=== PATIENT | male | born 1945 | race Two or more races ===

== ENCOUNTER 2020-03-08 14:56 | Emergency (ER) | payer BC, OTHER ==
[~2020-03-08] VITALS: Ht 165.1 cm; Wt 72.6 kg
[2020-03-08] MEDS ORDERED: ASPirin 81 mg TAB PO ONE (15:15)
[2020-03-08 22:13] LABS: Basophils # (auto) 0 10 ^3/uL (0-0.2); Basophils % (auto) 0.9 % (0.0-2.0); Eosinophils # (auto) 0.1 10 ^3/uL (0-0.8); Eosinophils % (auto) 1.3 % (0.0-7.0); Hematocrit 32.6 % (41.0-53.0); Hemoglobin 11.3 g/dL (13.5-17.5); Lymphocytes # (auto) 0.8 10 ^3/uL (0.4-5.4); Lymphocytes % (auto) 16.1 % (10.0-50.0); Mean Corpuscular Hemoglobin 30.9 pg (28.0-32.0); Mean Corpuscular Hgb Conc. 34.5 g/dL (32.0-36.0); Mean Corpuscular Volume 89.6 fL (80.0-100.0); Monocytes # (auto) 0.5 10 ^3/uL (0-1.3); Monocytes % (auto) 11.2 % (0.0-12.0); Neutrophils # (auto) 3.4 10 ^3/uL (1.6-8.6); Neutrophils % (auto) 70.5 % (37.0-80.0); Platelet Count (auto) 175 10^3/uL (140-450); Red Blood Cells 3.64 10^6/uL (4.5-5.90); Red Cell Distribution Width 13.4 % (11.8-14.3); White Blood Cell 4.9 10^3/uL (4.4-10.8)
[2020-03-08 22:33] LABS: Albumin 3.7 g/dL (3.4-5.0); Potassium 4.2 mmol/L (3.5-5.1)
[2020-03-08 22:35] LABS: INR 1.02 (0.9-1.15); Partial Thromboplastin Time 27.1 sec (23.0-31.2)
[2020-03-08 22:36] LABS: Calcium 8.4 mg/dL (8.5-10.1); Magnesium 2.1 mg/dL (1.6-2.6)
[2020-03-08 22:41] LABS: Bilirubin, Total 0.4 mg/dL (0.2-1.0); Total Protein 7.7 g/dL (6.4-8.2)
[2020-03-09 03:00] VITALS: BP 161/67
== END 2020-03-08 23:17 | disposition home or self-care (01) ==
LOC: ER 14:56 → EDBD 14:56 → ER 23:17
DX: F41.9 Anxiety disorder, unspecified (principal); R07.89 Other chest pain; I10 Essential (primary) hypertension
CPT/HCPCS: 36415; 71045; 80053; 83735; 83880; 84484; 85025; 85610; 85730; 93005

== ENCOUNTER 2020-04-25 04:24 | Inpatient (IN) | payer BC ==
[~2020-04-25] VITALS: Ht 175.3 cm; Wt 73.3 kg
[2020-04-25 08:31] LABS: Basophils # (auto) 0 10 ^3/uL (0-0.2); Basophils % (auto) 0.2 % (0.0-2.0); Eosinophils # (auto) 0 10 ^3/uL (0-0.8); Eosinophils % (auto) 0.1 % (0.0-7.0); Hematocrit 32.7 % (41.0-53.0); Hemoglobin 11.4 g/dL (13.5-17.5); Lymphocytes # (auto) 0.4 10 ^3/uL (0.4-5.4); Lymphocytes % (auto) 4.6 % (10.0-50.0); Mean Corpuscular Hemoglobin 31.1 pg (28.0-32.0); Mean Corpuscular Hgb Conc. 34.9 g/dL (32.0-36.0); Mean Corpuscular Volume 89.1 fL (80.0-100.0); Monocytes # (auto) 0.5 10 ^3/uL (0-1.3); Monocytes % (auto) 5.7 % (0.0-12.0); Neutrophils # (auto) 7.6 10 ^3/uL (1.6-8.6); Neutrophils % (auto) 89.4 % (37.0-80.0); Platelet Count (auto) 139 10^3/uL (140-450); Red Blood Cells 3.67 10^6/uL (4.5-5.90); Red Cell Distribution Width 13.5 % (11.8-14.3); White Blood Cell 8.5 10^3/uL (4.4-10.8)
[2020-04-25 09:11] LABS: INR 1.03 (0.9-1.15); Partial Thromboplastin Time 25.1 sec (23.0-31.2)
[2020-04-25] MEDS ORDERED: ONDANSETRON HCL 4 MG/2 ML VIAL IV ONE (10:00)
[2020-04-25] MEDS ORDERED: MORPHINE SULFATE 4 MG/ML SYR/VIAL IV ONE (10:00)
[2020-04-25 12:57] LABS: Basophils # (auto) 0 10 ^3/uL (0-0.2); Basophils % (auto) 0.1 % (0.0-2.0); Eosinophils # (auto) 0 10 ^3/uL (0-0.8); Eosinophils % (auto) 0.1 % (0.0-7.0); Hematocrit 33.2 % (41.0-53.0); Hemoglobin 11.5 g/dL (13.5-17.5); Lymphocytes # (auto) 0.4 10 ^3/uL (0.4-5.4); Lymphocytes % (auto) 4.9 % (10.0-50.0); Mean Corpuscular Hemoglobin 30.9 pg (28.0-32.0); Mean Corpuscular Hgb Conc. 34.5 g/dL (32.0-36.0); Mean Corpuscular Volume 89.4 fL (80.0-100.0); Monocytes # (auto) 0.3 10 ^3/uL (0-1.3); Monocytes % (auto) 3.8 % (0.0-12.0); Neutrophils # (auto) 7.9 10 ^3/uL (1.6-8.6); Neutrophils % (auto) 91.1 % (37.0-80.0); Nucleated Red Blood Cells % 0.2 %; Platelet Count (auto) 148 10^3/uL (140-450); Red Blood Cells 3.72 10^6/uL (4.5-5.90); Red Cell Distribution Width 13.7 % (11.8-14.3); White Blood Cell 8.7 10^3/uL (4.4-10.8)
[2020-04-25 13:02] LABS: Albumin 3.1 g/dL (3.4-5.0); Calcium 8.1 mg/dL (8.5-10.1); Potassium 5.2 mmol/L (3.5-5.1)
[2020-04-25 13:05] LABS: BUN/Creatinine Ratio 15.2; Bilirubin, Total 0.5 mg/dL (0.2-1.0)
[2020-04-25] MEDS ORDERED: NITROGLYCERIN 0.4 MG SL TAB SL PRN (13:45)
[2020-04-25] MEDS ORDERED: SODIUM BICARBONATE 8.4 % INJ 50ML VIAL IV ONE (13:45)
[2020-04-25] MEDS ORDERED: ONDANSETRON HCL 4 MG/2 ML VIAL IV PRN (13:45)
[2020-04-25] MEDS ORDERED: amLODIPine BESYLATE 5 MG TAB PO ONE (13:45)
[2020-04-25] MEDS ORDERED: SODIUM ZIRCONIUM CYCL 10 GM PAK PO ONE (13:45)
[2020-04-25] MEDS ORDERED: ACETAMINOPHEN 500 MG TAB PO PRN (13:45)
[2020-04-25] MEDS ORDERED: DEXTROSE (50%) 50ML SYRG IV PRN (13:45)
[2020-04-25] MEDS ORDERED: MORPHINE SULF INJ 2 MG/ML SYRINGE 1ML IV PRN ×2 (13:45)
[2020-04-25 14:17] LABS: INR 1.03 (0.9-1.15); Partial Thromboplastin Time 25.7 sec (23.0-31.2)
[2020-04-25 14:44] LABS: Urine Bacteria NONE SEEN /hpf (None Seen); Urine Blood Negative /uL (Negative); Urine Specific Gravity 1.013 (1.001-1.035); Urine WBC 1 /hpf (0 - 3)
[2020-04-25] MEDS: HYDROcodone-ACET 5/325MG TAB PO PRN (15:07)
[2020-04-25] MEDS: hydrALAZINE HCL 20 MG/ML VL IV PRN (16:07)
[2020-04-25] MEDS: ACCU-CHEK COMFORT CURVE STRIP VI SCH ×2 (18:17→21:43)
[2020-04-25] MEDS: InsuLIN REG 1unit/0.01ml Soln (100units/ml) SC SCH ×2 (18:17→21:49)
[2020-04-25 23:27] LABS: Creatinine, Urine 94 mg/dL (30.0-125.0); Sodium Urine 33 mmol/L (40-220)
[2020-04-25 23:30] VITALS: BP 162/72
[2020-04-26] MEDS ORDERED: GLIP10TA9 PO (02:26)
[2020-04-26] MEDS ORDERED: NITR1SPR SL (02:26)
[2020-04-26] MEDS ORDERED: HYDR50TA15 PO (02:26)
[2020-04-26] MEDS ORDERED: METO-158 PO (02:26)
[2020-04-26] MEDS ORDERED: ATOR20TA PO (02:26)
[2020-04-26] MEDS ORDERED: CLOP75TA28 PO (02:26)
[2020-04-26] MEDS ORDERED: AMLO-489 PO (02:26)
[2020-04-26] MEDS ORDERED: ASPI-543 PO (02:26)
[2020-04-26] MEDS ORDERED: ISOS60TA24 PO (02:26)
[2020-04-26 05:00] VITALS: BP 159/71
[2020-04-26] MEDS: hydrALAZINE HCL 20 MG/ML VL IV PRN (06:04)
[2020-04-26] MEDS: ACCU-CHEK COMFORT CURVE STRIP VI SCH ×4 (06:34→21:37)
[2020-04-26] MEDS: InsuLIN REG 1unit/0.01ml Soln (100units/ml) SC SCH ×4 (06:34→21:37)
[2020-04-26 07:04] LABS: Basophils # (auto) 0 10 ^3/uL (0-0.2); Basophils % (auto) 0.4 % (0.0-2.0); Eosinophils # (auto) 0 10 ^3/uL (0-0.8); Eosinophils % (auto) 0.6 % (0.0-7.0); Hematocrit 33.1 % (41.0-53.0); Hemoglobin 11.7 g/dL (13.5-17.5); Lymphocytes # (auto) 0.9 10 ^3/uL (0.4-5.4); Lymphocytes % (auto) 12.3 % (10.0-50.0); Mean Corpuscular Hemoglobin 31.3 pg (28.0-32.0); Mean Corpuscular Hgb Conc. 35.3 g/dL (32.0-36.0); Mean Corpuscular Volume 88.6 fL (80.0-100.0); Monocytes # (auto) 0.6 10 ^3/uL (0-1.3); Monocytes % (auto) 8.6 % (0.0-12.0); Neutrophils # (auto) 5.6 10 ^3/uL (1.6-8.6); Neutrophils % (auto) 78.1 % (37.0-80.0); Platelet Count (auto) 146 10^3/uL (140-450); Red Blood Cells 3.74 10^6/uL (4.5-5.90); Red Cell Distribution Width 13.5 % (11.8-14.3); White Blood Cell 7.1 10^3/uL (4.4-10.8)
[2020-04-26 07:16] LABS: Albumin 3.1 g/dL (3.4-5.0); Calcium 8.5 mg/dL (8.5-10.1); Potassium 4.2 mmol/L (3.5-5.1)
[2020-04-26 07:18] LABS: BUN/Creatinine Ratio 14.1
[2020-04-26 07:21] LABS: Bilirubin, Total 0.7 mg/dL (0.2-1.0); Total Protein 6.9 g/dL (6.4-8.2)
[2020-04-26 09:00] VITALS: BP 158/58
[2020-04-26] MEDS ORDERED: SODIUM CHLORIDE 0.9% 1,000 ML IV ONE (10:15)
[2020-04-26] MEDS: amLODIPine BESYLATE 5 MG TAB PO SCH (11:06)
[2020-04-26] MEDS: FAMOTIDINE 20 MG TAB PO SCH (11:06)
[2020-04-26 13:00] VITALS: BP 171/63
[2020-04-26] MEDS: SODIUM CHLORIDE 0.9% 1,000 ML IV SCH (14:15)
[2020-04-26] MEDS: MECLIZINE HCL 25 MG TAB PO SCH (17:16)
[2020-04-26 17:17] VITALS: BP 158/63
[2020-04-26] MEDS: CELECOXIB 100 MG CAP PO SCH (21:36)
[2020-04-26] MEDS: cloNIDine HCL 0.1 MG TAB PO SCH (21:37)
[2020-04-26 22:00] VITALS: BP 139/88
[2020-04-26] MEDS: HYDROcodone-ACET 5/325MG TAB PO PRN (22:09)
[2020-04-27] MEDS: SODIUM CHLORIDE 0.9% 1,000 ML IV SCH (04:28)
[2020-04-27 05:00] VITALS: BP 159/73
[2020-04-27] MEDS: MECLIZINE HCL 25 MG TAB PO SCH ×2 (06:52→17:00)
[2020-04-27] MEDS: InsuLIN REG 1unit/0.01ml Soln (100units/ml) SC SCH ×4 (06:52→21:50)
[2020-04-27] MEDS: ACCU-CHEK COMFORT CURVE STRIP VI SCH ×4 (06:52→21:51)
[2020-04-27] MEDS: HYDROcodone-ACET 5/325MG TAB PO PRN (06:52)
[2020-04-27 06:54] LABS: Basophils # (auto) 0 10 ^3/uL (0-0.2); Basophils % (auto) 0.5 % (0.0-2.0); Eosinophils # (auto) 0.1 10 ^3/uL (0-0.8); Eosinophils % (auto) 1.7 % (0.0-7.0); Hematocrit 28.6 % (41.0-53.0); Hemoglobin 10.1 g/dL (13.5-17.5); Lymphocytes # (auto) 1.1 10 ^3/uL (0.4-5.4); Lymphocytes % (auto) 17.7 % (10.0-50.0); Mean Corpuscular Hemoglobin 31.4 pg (28.0-32.0); Mean Corpuscular Hgb Conc. 35.4 g/dL (32.0-36.0); Mean Corpuscular Volume 88.7 fL (80.0-100.0); Monocytes # (auto) 0.8 10 ^3/uL (0-1.3); Monocytes % (auto) 12.6 % (0.0-12.0); Neutrophils # (auto) 4.3 10 ^3/uL (1.6-8.6); Neutrophils % (auto) 67.5 % (37.0-80.0); Platelet Count (auto) 118 10^3/uL (140-450); Red Blood Cells 3.23 10^6/uL (4.5-5.90); Red Cell Distribution Width 13.4 % (11.8-14.3); White Blood Cell 6.4 10^3/uL (4.4-10.8)
[2020-04-27 07:05] LABS: Calcium 7.6 mg/dL (8.5-10.1); Potassium 4.5 mmol/L (3.5-5.1)
[2020-04-27 09:00] VITALS: BP 160/70
[2020-04-27] MEDS: cloNIDine HCL 0.1 MG TAB PO SCH (09:34)
[2020-04-27] MEDS: amLODIPine BESYLATE 5 MG TAB PO SCH (09:35)
[2020-04-27] MEDS: ASPirin-EC 81 mg tab PO SCH (09:35)
[2020-04-27] MEDS: CELECOXIB 100 MG CAP PO SCH ×2 (09:35→21:51)
[2020-04-27] MEDS: FAMOTIDINE 20 MG TAB PO SCH (09:35)
[2020-04-27] MEDS: CARVEDILOL 3.125 MG TAB PO SCH ×2 (11:30→21:51)
[2020-04-27 13:00] VITALS: BP 152/73
[2020-04-27] MEDS: hydrALAZINE HCL 20 MG/ML VL IV PRN (18:00)
[2020-04-27 23:02] VITALS: BP 149/65
[2020-04-28] MEDS: hydrALAZINE HCL 20 MG/ML VL IV PRN ×3 (00:58→11:43)
[2020-04-28 02:47] VITALS: BP 137/60
[2020-04-28 05:23] VITALS: BP 154/76
[2020-04-28] MEDS: MECLIZINE HCL 25 MG TAB PO SCH ×2 (05:29→16:48)
[2020-04-28] MEDS: InsuLIN REG 1unit/0.01ml Soln (100units/ml) SC SCH ×3 (05:30→16:54)
[2020-04-28] MEDS: ACCU-CHEK COMFORT CURVE STRIP VI SCH ×3 (05:31→16:46)
[2020-04-28] MEDS: HYDROcodone-ACET 5/325MG TAB PO PRN ×2 (05:36→15:17)
[2020-04-28 06:29] LABS: % Iron Saturation 10.8 % (20-55)
[2020-04-28 06:31] LABS: BUN/Creatinine Ratio 15.6; Calcium 8.4 mg/dL (8.5-10.1); Potassium 4.1 mmol/L (3.5-5.1)
[2020-04-28 09:00] VITALS: BP 152/69
[2020-04-28] MEDS: CELECOXIB 100 MG CAP PO SCH (09:15)
[2020-04-28] MEDS: CARVEDILOL 3.125 MG TAB PO SCH (09:17)
[2020-04-28] MEDS: amLODIPine BESYLATE 5 MG TAB PO SCH (09:17)
[2020-04-28] MEDS: ASPirin-EC 81 mg tab PO SCH (09:17)
[2020-04-28] MEDS: FAMOTIDINE 20 MG TAB PO SCH (09:18)
[2020-04-28 13:00] VITALS: BP 143/61
[2020-04-28] MEDS ORDERED: CYCL5TAB PO (14:34)
[2020-04-28] MEDS ORDERED: CEL100T PO (14:34)
[2020-04-28] MEDS ORDERED: FAMO20TA10 PO (14:34)
[2020-04-28 17:40] VITALS: BP 143/67
[2020-04-28] MEDS ORDERED: FUROSEMIDE 20 MG TAB PO SCH (18:00)
== END 2020-04-28 18:43 | disposition home or self-care (01) | DRG 199 ==
LOC: ER 04:24 → EDBD 04:24 → TELE 04:25 → DOU IN ADS 23:20
PROVIDERS: ADMIT Nurse Practitioner Acute Care; ATTEND Hospitalist
PROC: 0W9930Z Drainage of Right Pleural Cavity with Drainage Device, Percutaneous Approach (ICD-10-PCS; principal; 2020-04-25)
DX: S27.0XXA Traumatic pneumothorax, initial encounter (principal); J96.01 Acute respiratory failure with hypoxia; S22.41XA Multiple fractures of ribs, right side, initial encounter for closed fracture; E44.0 Moderate protein-calorie malnutrition; J98.11 Atelectasis; N18.5 Chronic kidney disease, stage 5; N17.9 Acute kidney failure, unspecified; I12.0 Hypertensive chronic kidney disease with stage 5 chronic kidney disease or end stage renal disease; Z20.822 Contact with and (suspected) exposure to COVID-19; E87.5 Hyperkalemia; I25.10 Atherosclerotic heart disease of native coronary artery without angina pectoris; E11.22 Type 2 diabetes mellitus with diabetic chronic kidney disease; F41.9 Anxiety disorder, unspecified; W18.39XA Other fall on same level, initial encounter; Y93.89 Activity, other specified; Y92.89 Other specified places as the place of occurrence of the external cause; Y99.8 Other external cause status; Z79.84 Long term (current) use of oral hypoglycemic drugs; Z79.899 Other long term (current) drug therapy; Z95.5 Presence of coronary angioplasty implant and graft; Z82.49 Family history of ischemic heart disease and other diseases of the circulatory system; Z83.3 Family history of diabetes mellitus
CPT/HCPCS: 36415; 70450; 70551; 71045; 71250; 76775; 78582; 80048; 80053; 81001; 82570; 82728; 82962; 83036; 83540; 83550; 83735; 83880; 83935; 84100; 84132; 84300; 84484; 85025; 85379; 85610; 85730; 87426; 93005; 93970; 96372; 96374; 96375; G0378; J1815; J2405

== ENCOUNTER 2020-07-25 21:28 | Inpatient (IN) | payer OTHER ==
[~2020-07-25] VITALS: Ht 172.7 cm; Wt 70.8 kg
[~2020-07-25 21:28] MED LIST: AMLO-489 PO; ASPI-543 PO; ATOR20TA PO; CEL100T PO; CLOP75TA28 PO; CYCL5TAB PO; FAMO20TA10 PO; GLIP10TA9 PO; HYDR50TA15 PO; ISOS60TA24 PO; METO-158 PO; NITR1SPR SL
[2020-07-25 22:22] LABS: Basophils # (auto) 0.1 10 ^3/uL (0-0.2); Eosinophils # (auto) 0.3 10 ^3/uL (0-0.8); Eosinophils % (auto) 5.5 % (0.0-7.0); Hematocrit 29.6 % (41.0-53.0); Hemoglobin 10.7 g/dL (13.5-17.5); Lymphocytes # (auto) 0.8 10 ^3/uL (0.4-5.4); Lymphocytes % (auto) 16.1 % (10.0-50.0); Mean Corpuscular Hemoglobin 31.8 pg (28.0-32.0); Mean Corpuscular Hgb Conc. 36.1 g/dL (32.0-36.0); Monocytes # (auto) 0.6 10 ^3/uL (0-1.3); Monocytes % (auto) 12.3 % (0.0-12.0); Neutrophils # (auto) 3.4 10 ^3/uL (1.6-8.6); Neutrophils % (auto) 65.1 % (37.0-80.0); Platelet Count (auto) 175 10^3/uL (140-450); Red Blood Cells 3.37 10^6/uL (4.5-5.90); Red Cell Distribution Width 13.7 % (11.8-14.3); White Blood Cell 5.2 10^3/uL (4.4-10.8)
[2020-07-25 22:41] LABS: Albumin 3.6 g/dL (3.4-5.0); Anion Gap 10 (5-15); Blood Urea Nitrogen 63 mg/dL (7-18); Calcium 8.1 mg/dL (8.5-10.1); Carbon Dioxide 20 mmol/L (21-32); Chloride 104 mmol/L (98-107); Glucose 222 mg/dL (74-106); Potassium 3.9 mmol/L (3.5-5.1); Sodium 134 mmol/L (136-145)
[2020-07-25 22:48] LABS: Alanine Aminotransferase 17 U/L (16-61); Alkaline Phosphatase 81 U/L (45-117); Aspartate Aminotransferase 10 U/L (15-37); Bilirubin, Total 0.5 mg/dL (0.2-1.0); GFR African American 19 mL/min; GFR Non-African American 16 mL/min; Total Protein 7.7 g/dL (6.4-8.2)
[2020-07-26] MEDS ORDERED: ACETAMINOPHEN 325 MG TAB PO PRN (06:30)
[2020-07-26] MEDS ORDERED: ONDANSETRON HCL 4 MG/2 ML VIAL IV PRN (06:30)
[2020-07-26] MEDS ORDERED: cloNIDine HCL 0.1 MG TAB PO PRN (06:30)
[2020-07-26] MEDS ORDERED: DEXTROSE (50%) 50ML SYRG IV PRN (06:30)
[2020-07-26] MEDS ORDERED: MORPHINE SULF INJ 2 MG/ML SYRINGE 1ML IV PRN (06:30)
[2020-07-26] MEDS ORDERED: NITROGLYCERIN 0.4 MG SL TAB SL PRN (06:30)
[2020-07-26] MEDS: InsuLIN REG 1unit/0.01ml Soln (100units/ml) SC SCH ×2 (07:00→11:30)
[2020-07-26] MEDS: ACCU-CHEK COMFORT CURVE STRIP VI SCH ×2 (07:00→11:30)
[2020-07-26] MEDS ORDERED: ADENOSINE 59 MG in GIVE UN-DILUTED 0 ML IV STA (08:30)
[2020-07-26] MEDS ORDERED: SODIUM CHLORIDE 0.9% 1,000 ML IV SCH (09:00)
[2020-07-26] MEDS ORDERED: PANTOPRAZOLE 40 MG/10 ML VIAL INJ IV SCH (10:00)
[2020-07-26] MEDS ORDERED: hydrALAZINE HCL 25 MG TAB PO SCH (10:00)
[2020-07-26] MEDS ORDERED: amLODIPine BESYLATE 5 MG TAB PO SCH (10:00)
[2020-07-26] MEDS ORDERED: ASPirin 81 mg TAB PO SCH (10:00)
[2020-07-26] MEDS ORDERED: CLOPIDOGREL BISULFATE 75 MG TAB PO SCH (10:00)
[2020-07-26] MEDS ORDERED: METOPROLOL SUCCINATE XL 50 MG TAB PO SCH (10:00)
[2020-07-26] MEDS ORDERED: ISOSORBIDE MONONITRATE ER 60 MG TAB PO SCH (10:00)
[2020-07-26 10:32] VITALS: BP 167/78
[2020-07-26 12:43] VITALS: BP 159/75
[2020-07-26 13:23] LABS: Basophils # (auto) 0 10 ^3/uL (0-0.2); Basophils % (auto) 0.5 % (0.0-2.0); Eosinophils # (auto) 0.2 10 ^3/uL (0-0.8); Eosinophils % (auto) 2.3 % (0.0-7.0); Hematocrit 31.7 % (41.0-53.0); Hemoglobin 10.9 g/dL (13.5-17.5); Lymphocytes # (auto) 0.7 10 ^3/uL (0.4-5.4); Mean Corpuscular Hemoglobin 30.5 pg (28.0-32.0); Mean Corpuscular Hgb Conc. 34.3 g/dL (32.0-36.0); Mean Corpuscular Volume 88.9 fL (80.0-100.0); Monocytes # (auto) 0.4 10 ^3/uL (0-1.3); Monocytes % (auto) 5.9 % (0.0-12.0); Neutrophils # (auto) 6.1 10 ^3/uL (1.6-8.6); Neutrophils % (auto) 81.3 % (37.0-80.0); Platelet Count (auto) 196 10^3/uL (140-450); Red Blood Cells 3.56 10^6/uL (4.5-5.90); Red Cell Distribution Width 13.8 % (11.8-14.3); White Blood Cell 7.4 10^3/uL (4.4-10.8)
[2020-07-26 13:24] LABS: Urine Bacteria NONE SEEN /hpf (None Seen); Urine Blood Negative /uL (Negative); Urine Specific Gravity 1.009 (1.001-1.035); Urine WBC <1 /hpf (0 - 3)
[2020-07-26 13:34] LABS: Albumin 3.7 g/dL (3.4-5.0); Calcium 8.5 mg/dL (8.5-10.1); Potassium 4.2 mmol/L (3.5-5.1)
[2020-07-26 13:35] LABS: Protein, Urine 116.8 mg/dL (0.0-11.9)
[2020-07-26 13:37] LABS: BUN/Creatinine Ratio 14.6; Bilirubin, Total 0.5 mg/dL (0.2-1.0); Total Protein 8.1 g/dL (6.4-8.2)
[2020-07-26 17:00] VITALS: BP 157/75
[2020-07-26] MEDS ORDERED: ATORVASTATIN 20 MG TAB PO SCH (22:00)
== END 2020-07-26 18:45 | disposition home or self-care (01) | DRG 313 ==
LOC: ER 21:31 → TELE 07-26 06:22 → TELE-EAST 07-26 11:29
PROVIDERS: ADMIT Nurse Practitioner; ATTEND Internal Medicine
DX: R07.9 Chest pain, unspecified (principal); N18.4 Chronic kidney disease, stage 4 (severe); I25.110 Atherosclerotic heart disease of native coronary artery with unstable angina pectoris; D64.9 Anemia, unspecified; E07.9 Disorder of thyroid, unspecified; E11.22 Type 2 diabetes mellitus with diabetic chronic kidney disease; E78.5 Hyperlipidemia, unspecified; Z20.822 Contact with and (suspected) exposure to COVID-19; I12.9 Hypertensive chronic kidney disease with stage 1 through stage 4 chronic kidney disease, or unspecified chronic kidney disease; Z79.84 Long term (current) use of oral hypoglycemic drugs; Z83.3 Family history of diabetes mellitus; Z82.49 Family history of ischemic heart disease and other diseases of the circulatory system; Z95.5 Presence of coronary angioplasty implant and graft
CPT/HCPCS: 36415; 71045; 78452; 80053; 80061; 81001; 82570; 82962; 83880; 84156; 84300; 84443; 84484; 85025; 87426; 93005; 93017; 93306; 96365; 96375; C9113; G0378; J0153

== ENCOUNTER 2021-10-26 13:13 | Inpatient (IN) | payer OTHER ==
[~2021-10-26] VITALS: Ht 170.2 cm; Wt 97.8 kg
[~2021-10-26 13:13] MED LIST changes: +CYCL-837 PO; -CYCL5TAB PO
[2021-10-26 15:10] LABS: Basophils # (auto) 0 10 ^3/uL (0-0.2); Basophils % (auto) 0.8 % (0.0-2.0); Eosinophils # (auto) 0 10 ^3/uL (0-0.8); Eosinophils % (auto) 0.6 % (0.0-7.0); Hematocrit 35.4 % (41.0-53.0); Hemoglobin 12.1 g/dL (13.5-17.5); Lymphocytes # (auto) 0.8 10 ^3/uL (0.4-5.4); Lymphocytes % (auto) 13.6 % (10.0-50.0); Mean Corpuscular Hemoglobin 30.3 pg (28.0-32.0); Mean Corpuscular Hgb Conc. 34.1 g/dL (32.0-36.0); Mean Corpuscular Volume 89.1 fL (80.0-100.0); Monocytes # (auto) 0.4 10 ^3/uL (0-1.3); Monocytes % (auto) 6.4 % (0.0-12.0); Neutrophils # (auto) 4.5 10 ^3/uL (1.6-8.6); Neutrophils % (auto) 78.6 % (37.0-80.0); Red Blood Cells 3.97 10^6/uL (4.5-5.90); Red Cell Distribution Width 13.6 % (11.8-14.3); White Blood Cell 5.7 10^3/uL (4.4-10.8)
[2021-10-26 15:27] LABS: Albumin 3.4 g/dL (3.4-5.0); Calcium 8.1 mg/dL (8.5-10.1); Magnesium 2.6 mg/dL (1.6-2.6); Potassium 3.9 mmol/L (3.5-5.1)
[2021-10-26 15:30] LABS: BUN/Creatinine Ratio 12.7; Bilirubin, Total 0.8 mg/dL (0.2-1.0)
[2021-10-26] MEDS ORDERED: ASPirin 325 MG TAB PO ONE (19:30)
[2021-10-26] MEDS ORDERED: DEXTROSE (50%) 50ML SYRG IV PRN (19:30)
[2021-10-26] MEDS ORDERED: SODIUM CHLORIDE 0.9% 1,000 ML IV SCH (19:30)
[2021-10-26] MEDS ORDERED: NITROGLYCERIN 0.4 MG SL TAB SL PRN (19:30)
[2021-10-26] MEDS ORDERED: SODIUM CHLORIDE 0.9% 1,000 ML IV ONE (19:30)
[2021-10-26] MEDS ORDERED: MORPHINE SULFATE INJ 2 MG/ml SYRG IV PRN (19:30)
[2021-10-26 20:17] LABS: Cholesterol 154 mg/dL (< 200)
[2021-10-26 20:20] LABS: HDL Cholesterol 48 mg/dL (40-59); LDL Cholesterol 106 mg/dL (< 100); Triglycerides 71 mg/dL (< 150)
[2021-10-26] MEDS: InsuLIN REG 1unit/0.01ml Soln (100units/ml) SC SCH (22:00)
[2021-10-26] MEDS: ACCU-CHEK COMFORT CURVE STRIP VI SCH (22:00)
[2021-10-26] MEDS: hydrALAZINE HCL 20 MG/ML VL IV PRN (22:01)
[2021-10-26 22:46] LABS: Urine WBC None Seen /hpf (0 - 3)
[2021-10-26 22:58] LABS: Urine Bacteria NONE SEEN /hpf (None Seen); Urine Blood Negative /uL (Negative); Urine Specific Gravity 1.004 (1.001-1.035)
[2021-10-27] VITALS (7 sets, daily range): BP systolic 130–183; BP diastolic 68–97
[2021-10-27] MEDS: hydrALAZINE HCL 20 MG/ML VL IV PRN (04:48)
[2021-10-27 06:24] LABS: Basophils # (auto) 0 10 ^3/uL (0-0.2); Basophils % (auto) 0.7 % (0.0-2.0); Eosinophils # (auto) 0.1 10 ^3/uL (0-0.8); Eosinophils % (auto) 2.1 % (0.0-7.0); Hematocrit 34.4 % (41.0-53.0); Hemoglobin 12.3 g/dL (13.5-17.5); Lymphocytes # (auto) 0.9 10 ^3/uL (0.4-5.4); Lymphocytes % (auto) 20.6 % (10.0-50.0); Mean Corpuscular Hemoglobin 31.7 pg (28.0-32.0); Mean Corpuscular Hgb Conc. 35.7 g/dL (32.0-36.0); Mean Corpuscular Volume 88.7 fL (80.0-100.0); Monocytes # (auto) 0.5 10 ^3/uL (0-1.3); Monocytes % (auto) 11.5 % (0.0-12.0); Neutrophils # (auto) 2.9 10 ^3/uL (1.6-8.6); Neutrophils % (auto) 65.1 % (37.0-80.0); Nucleated Red Blood Cells % 0.1 %; Red Blood Cells 3.88 10^6/uL (4.5-5.90); Red Cell Distribution Width 13.5 % (11.8-14.3); White Blood Cell 4.4 10^3/uL (4.4-10.8)
[2021-10-27] MEDS: InsuLIN REG 1unit/0.01ml Soln (100units/ml) SC SCH ×4 (06:31→21:57)
[2021-10-27] MEDS: ACCU-CHEK COMFORT CURVE STRIP VI SCH ×4 (06:32→21:43)
[2021-10-27 06:40] LABS: Potassium 3.4 mmol/L (3.5-5.1)
[2021-10-27 06:50] LABS: Albumin 3.1 g/dL (3.4-5.0); BUN/Creatinine Ratio 14.9; Bilirubin, Total 0.7 mg/dL (0.2-1.0); Calcium 8.1 mg/dL (8.5-10.1); Total Protein 6.7 g/dL (6.4-8.2)
[2021-10-27] MEDS ORDERED: METOPROLOL TARTRATE 50 MG TAB PO SCH (10:00)
[2021-10-27] MEDS ORDERED: ISOSORBIDE MONONITRATE ER 60 MG TAB PO SCH (10:00)
[2021-10-27] MEDS ORDERED: ATORVASTATIN 20 MG TAB PO SCH ×2 (10:00)
[2021-10-27] MEDS ORDERED: CLOPIDOGREL BISULFATE 75 MG TAB PO SCH (10:00)
[2021-10-27] MEDS ORDERED: ENOXAPARIN SOD 40 MG/0.4 ML SYRINGE SC SCH (10:00)
[2021-10-27] MEDS ORDERED: amLODIPine BESYLATE 5 MG TAB PO SCH ×2 (10:00→12:45)
[2021-10-27] MEDS ORDERED: ASPirin-EC 81 mg tab PO SCH (10:00)
[2021-10-27] MEDS ORDERED: POTASSIUM CHL 20 Meq TABLET PO ONE (10:15)
[2021-10-27] MEDS ORDERED: METO-289 PO (12:34)
[2021-10-27] MEDS ORDERED: GLIP5TAB12 PO (12:34)
[2021-10-27] MEDS: hydrALAZINE HCL 25 MG TAB PO SCH ×2 (15:26→21:57)
[2021-10-27 15:47] LABS: Hepatitis C Antibody Negative (Negative)
== END 2021-10-27 21:40 | disposition home or self-care (01) | DRG 637 ==
LOC: EDBD 13:13 → ER 13:19 → TELE 19:52 → TELE-WESTW 23:41
PROVIDERS: ADMIT Registered Nurse; ATTEND Internal Medicine
DX: E11.649 Type 2 diabetes mellitus with hypoglycemia without coma (principal); I21.A1 Myocardial infarction type 2; E87.1 Hypo-osmolality and hyponatremia; I13.2 Hypertensive heart and chronic kidney disease with heart failure and with stage 5 chronic kidney disease, or end stage renal disease; D63.1 Anemia in chronic kidney disease; N18.5 Chronic kidney disease, stage 5; E11.22 Type 2 diabetes mellitus with diabetic chronic kidney disease; E11.65 Type 2 diabetes mellitus with hyperglycemia; Z20.822 Contact with and (suspected) exposure to COVID-19; E66.01 Morbid (severe) obesity due to excess calories; E87.6 Hypokalemia; I16.0 Hypertensive urgency; I25.10 Atherosclerotic heart disease of native coronary artery without angina pectoris; Z68.33 Body mass index [BMI] 33.0-33.9, adult; Z82.49 Family history of ischemic heart disease and other diseases of the circulatory system; Z83.3 Family history of diabetes mellitus; Z79.84 Long term (current) use of oral hypoglycemic drugs; I50.9 Heart failure, unspecified; N17.9 Acute kidney failure, unspecified
CPT/HCPCS: 36415; 70450; 70551; 71045; 76775; 80053; 80061; 81001; 82306; 82962; 83036; 83735; 83880; 83970; 84100; 84443; 84484; 85025; 86803; 87340; 93005; 93886; 96360; G0378; J1815

== ENCOUNTER 2022-08-28 13:39 | Inpatient (IN) | payer OTHER ==
[~2022-08-28] VITALS: Ht 170.2 cm; Wt 63.7 kg
[~2022-08-28 13:39] MED LIST changes: -AMLO-489 PO; +AMLO1TAB22 PO; -CEL100T PO; -GLIP10TA9 PO; +GLIP5TAB12 PO; +HYDR-4297 PO; -HYDR50TA15 PO; -METO-158 PO; +METO-289 PO
[2022-08-28] MEDS ORDERED: FUROSEMIDE 40 MG/4 ML VIAL IV ONE (14:15)
[2022-08-28 14:26] LABS: Basophils # (auto) 0 10 ^3/uL (0-0.2); Basophils % (auto) 0.3 % (0.0-2.0); Eosinophils # (auto) 0 10 ^3/uL (0-0.8); Eosinophils % (auto) 0.7 % (0.0-7.0); Hematocrit 31.1 % (41.0-53.0); Hemoglobin 10.7 g/dL (13.5-17.5); Lymphocytes # (auto) 0.2 10 ^3/uL (0.4-5.4); Lymphocytes % (auto) 4.1 % (10.0-50.0); Mean Corpuscular Hemoglobin 32.8 pg (28.0-32.0); Mean Corpuscular Hgb Conc. 34.5 g/dL (32.0-36.0); Monocytes # (auto) 0.6 10 ^3/uL (0-1.3); Monocytes % (auto) 13.4 % (0.0-12.0); Neutrophils # (auto) 3.9 10 ^3/uL (1.6-8.6); Neutrophils % (auto) 81.5 % (37.0-80.0); Nucleated Red Blood Cells % 0.1 %; Red Blood Cells 3.27 10^6/uL (4.5-5.90); Red Cell Distribution Width 14.3 % (11.8-14.3); White Blood Cell 4.7 10^3/uL (4.4-10.8)
[2022-08-28 14:48] LABS: Potassium 4.1 mmol/L (3.5-5.1)
[2022-08-28 14:58] LABS: Albumin 3.9 g/dL (3.4-5.0); BUN/Creatinine Ratio 13.5 (10.0-20.0); Bilirubin, Total 0.6 mg/dL (0.2-1.0); Calcium 8.1 mg/dL (8.5-10.1); Total Protein 7.3 g/dL (6.4-8.2)
[2022-08-28] MEDS ORDERED: HYDROcodone-ACET 5/325MG TAB PO ONE (15:30)
[2022-08-28 16:26] LABS: Urine Bacteria NONE SEEN /hpf (None Seen); Urine Blood TRACE /uL (Negative); Urine Specific Gravity 1.009 (1.001-1.035); Urine WBC <1 /hpf (0 - 3)
[2022-08-28] MEDS ORDERED: B-CO-6 PO (18:24)
[2022-08-28] MEDS ORDERED: CARV3.1240 PO (18:24)
[2022-08-28] MEDS ORDERED: FURO80TA3 PO (18:24)
[2022-08-28] MEDS ORDERED: SEVE800T10 PO (18:24)
[2022-08-28] MEDS ORDERED: DEXTROSE (50%) 50ML SYRG IV PRN (18:45)
[2022-08-28] MEDS: ACCU-CHEK COMFORT CURVE STRIP VI SCH (22:59)
[2022-08-28] MEDS: InsuLIN REG 1unit/0.01ml Soln (100units/ml) SC SCH (22:59)
[2022-08-28] MEDS: FAMOTIDINE 20 MG TAB PO SCH (23:11)
[2022-08-28] MEDS: ATORVASTATIN 20 MG TAB PO SCH (23:11)
[2022-08-29] MEDS: FUROSEMIDE 40 MG TAB PO SCH ×3 (06:00→18:46)
[2022-08-29 06:01] LABS: Basophils # (auto) 0 10 ^3/uL (0-0.2); Basophils % (auto) 0.3 % (0.0-2.0); Eosinophils # (auto) 0.4 10 ^3/uL (0-0.8); Hematocrit 29.3 % (41.0-53.0); Hemoglobin 10.5 g/dL (13.5-17.5); Lymphocytes # (auto) 0.8 10 ^3/uL (0.4-5.4); Lymphocytes % (auto) 12.3 % (10.0-50.0); Mean Corpuscular Hemoglobin 33.8 pg (28.0-32.0); Mean Corpuscular Hgb Conc. 35.8 g/dL (32.0-36.0); Mean Corpuscular Volume 94.4 fL (80.0-100.0); Monocytes # (auto) 0.8 10 ^3/uL (0-1.3); Monocytes % (auto) 11.8 % (0.0-12.0); Neutrophils # (auto) 4.7 10 ^3/uL (1.6-8.6); Neutrophils % (auto) 69.6 % (37.0-80.0); Red Cell Distribution Width 14.4 % (11.8-14.3); White Blood Cell 6.8 10^3/uL (4.4-10.8)
[2022-08-29 06:20] LABS: Potassium 3.8 mmol/L (3.5-5.1)
[2022-08-29] MEDS: InsuLIN REG 1unit/0.01ml Soln (100units/ml) SC SCH ×4 (06:36→22:00)
[2022-08-29] MEDS: ACCU-CHEK COMFORT CURVE STRIP VI SCH ×4 (06:36→22:00)
[2022-08-29 06:38] LABS: Albumin 3.4 g/dL (3.4-5.0); Bilirubin, Total 0.6 mg/dL (0.2-1.0); Calcium 7.9 mg/dL (8.5-10.1)
[2022-08-29] MEDS: SEVELAMER 800 MG TAB PO SCH ×4 (08:00→18:46)
[2022-08-29 08:12] LABS: INR 1.13 (0.9-1.15); Partial Thromboplastin Time 30.6 sec (24.6-33.4)
[2022-08-29] MEDS: ASPirin-EC 81 mg tab PO SCH (10:00)
[2022-08-29] MEDS: B-COMPLEX W/ C & FOLIC ACID(NEPHROVITE TAB) PO SCH (10:00)
[2022-08-29] MEDS: ISOSORBIDE MONONITRATE ER 60 MG TAB PO SCH (10:00)
[2022-08-29] MEDS: FAMOTIDINE 20 MG TAB PO SCH ×2 (10:00→21:59)
[2022-08-29] MEDS ORDERED: ATORVASTATIN 20 MG TAB PO SCH (10:00)
[2022-08-29] MEDS: CARVEDILOL 3.125 MG TAB PO SCH (10:00)
[2022-08-29] MEDS: CLOPIDOGREL BISULFATE 75 MG TAB PO SCH (10:00)
[2022-08-29] MEDS ORDERED: LIDOCAINE 2%HCL (LOCAL ANESTH.) INJ 20ML MDV ONE (11:21)
[2022-08-29] MEDS ORDERED: HEPARIN SODIUM (PORCINE) 5000 UNITS/ML 1ML VIAL ONE (11:22)
[2022-08-29] MEDS ORDERED: MIDAZOLAM HCL 2MG/2ML 2ml VIAL (1mg/ml) ONE (11:23)
[2022-08-29] MEDS ORDERED: fentaNYL CITRATE 100 MCG/2 ML VL ONE (11:23)
[2022-08-29] MEDS ORDERED: ceFAZolin 1GM/50ML 50 ML IV ONE (11:34)
[2022-08-29 12:02] VITALS: BP 137/75
[2022-08-29 12:15] VITALS: BP 138/68
[2022-08-29] MEDS ORDERED: HEPARIN SODIUM (PORCINE) 5000 UNITS/ML 1ML VIAL IV ONE (16:00)
[2022-08-29] MEDS ORDERED: SODIUM CHL 0.9% 1000 ML BAG XX ONE (17:30)
[2022-08-29] MEDS: ATORVASTATIN 20 MG TAB PO SCH (21:59)
[2022-08-29 22:00] VITALS: BP 154/68
[2022-08-30 05:00] VITALS: BP 156/73
[2022-08-30] MEDS: FUROSEMIDE 40 MG TAB PO SCH (06:00)
[2022-08-30] MEDS: InsuLIN REG 1unit/0.01ml Soln (100units/ml) SC SCH ×2 (06:35→11:25)
[2022-08-30] MEDS: ACCU-CHEK COMFORT CURVE STRIP VI SCH ×2 (06:36→11:26)
[2022-08-30] MEDS: SEVELAMER 800 MG TAB PO SCH ×2 (08:11→13:50)
[2022-08-30 09:00] VITALS: BP 133/63
[2022-08-30 13:00] VITALS: BP 134/66
[2022-08-30] MEDS: ISOSORBIDE MONONITRATE ER 60 MG TAB PO SCH (13:51)
[2022-08-30] MEDS: B-COMPLEX W/ C & FOLIC ACID(NEPHROVITE TAB) PO SCH (13:51)
[2022-08-30] MEDS: ASPirin-EC 81 mg tab PO SCH (13:51)
[2022-08-30] MEDS: CLOPIDOGREL BISULFATE 75 MG TAB PO SCH (13:51)
[2022-08-30] MEDS: FAMOTIDINE 20 MG TAB PO SCH (13:51)
[2022-08-30] MEDS: CARVEDILOL 3.125 MG TAB PO SCH (13:54)
[2022-08-30 15:00] VITALS: BP 119/61
[2022-08-30 15:14] VITALS: BP 166/77
== END 2022-08-30 15:30 | disposition home or self-care (01) | DRG 698 ==
LOC: EDBD 13:39 → ER 13:39 → OVERFLOW 18:19 → EAST 08-29 13:06
PROVIDERS: ADMIT Nurse Practitioner Family; ATTEND Hospitalist
PROC: 0J2TXYZ Change Other Device in Trunk Subcutaneous Tissue and Fascia, External Approach (ICD-10-PCS; principal; 2022-08-30)
PROC: B5181ZA Fluoroscopy of Superior Vena Cava using Low Osmolar Contrast, Guidance (ICD-10-PCS; 2022-08-30)
PROC: 5A1D70Z Performance of Urinary Filtration, Intermittent, Less than 6 Hours Per Day (ICD-10-PCS; 2022-08-30)
DX: T82.41XA Breakdown (mechanical) of vascular dialysis catheter, initial encounter (principal); N18.6 End stage renal disease; E87.20 Acidosis, unspecified; I12.0 Hypertensive chronic kidney disease with stage 5 chronic kidney disease or end stage renal disease; E66.01 Morbid (severe) obesity due to excess calories; D63.1 Anemia in chronic kidney disease; E11.22 Type 2 diabetes mellitus with diabetic chronic kidney disease; I25.10 Atherosclerotic heart disease of native coronary artery without angina pectoris; Z20.822 Contact with and (suspected) exposure to COVID-19; Y71.8 Miscellaneous cardiovascular devices associated with adverse incidents, not elsewhere classified; Z91.199 Patient's noncompliance with other medical treatment and regimen due to unspecified reason; Z99.2 Dependence on renal dialysis; Z79.899 Other long term (current) drug therapy; Z88.8 Allergy status to other drugs, medicaments and biological substances; Z95.1 Presence of aortocoronary bypass graft; Z68.22 Body mass index [BMI] 22.0-22.9, adult; Y92.89 Other specified places as the place of occurrence of the external cause; Z83.3 Family history of diabetes mellitus; Z82.49 Family history of ischemic heart disease and other diseases of the circulatory system; Z91.158 Patient's noncompliance with renal dialysis for other reason
CPT/HCPCS: 36415; 36558; 71045; 80053; 81001; 82962; 83880; 84484; 85025; 85610; 85730; 87340; 90935; 93005; 99152; G0378; J0690; J1642; J1815; J2250

== ENCOUNTER 2024-03-20 14:14 | Inpatient (IN) | payer OTHER ==
[~2024-03-20] VITALS: Ht 171.4 cm; Wt 71.7 kg
[~2024-03-20 14:14] MED LIST changes: +B-CO-6 PO; +CARV3.1240 PO; +FURO80TA3 PO; -GLIP5TAB12 PO; +GLIP5TAB21 PO; -HYDR-4297 PO; +HYDR50TA47 PO; +ISOS1TAB29 PO; -ISOS60TA24 PO; +SEVE800T10 PO
[2024-03-20] MEDS: ASPirin 81 mg TAB PO ONE (14:51)
--- NOTE | 2024-03-20 14:51 | DVH ---
CHEST RADIOGRAPH Indication: cp Technique: Single frontal view of the chest was obtained COMPARISON: XY CHEST PORTABLE on DOS: 08/28/22, CHEST XRAY 1 VIEW on DOS: 10/26/21 FINDINGS: Lines and Tubes: Tunneled right central venous catheter in satisfactory position. Median sternotomy. Lungs: Mild congestion Pleura: No effusion. No pneumothorax. Cardiomediastinal contours: Unremarkable Bones: Unremarkable IMPRESSION: Mild congestion
[2024-03-20 15:09] VITALS: PULSE 79; RESP 13; O2SAT 98
[2024-03-20 15:27] LABS: Basophils # (auto) 0 10 ^3/uL (0-0.2); Basophils % (auto) 0.7 % (0.0-2.0); Eosinophils # (auto) 0.2 10 ^3/uL (0-0.8); Eosinophils % (auto) 2.4 % (0.0-7.0); Hematocrit 29.9 % (41.0-53.0); Hemoglobin 10.3 g/dL (13.5-17.5); Lymphocytes # (auto) 1.1 10 ^3/uL (0.4-5.4); Lymphocytes % (auto) 16.5 % (10.0-50.0); Mean Corpuscular Hemoglobin 30.8 pg (28.0-32.0); Mean Corpuscular Hgb Conc. 34.3 g/dL (32.0-36.0); Mean Corpuscular Volume 89.7 fL (80.0-100.0); Monocytes # (auto) 0.7 10 ^3/uL (0-1.3); Monocytes % (auto) 10.6 % (0.0-12.0); Neutrophils # (auto) 4.8 10 ^3/uL (1.6-8.6); Neutrophils % (auto) 69.8 % (37.0-80.0); Platelet Count (auto) 166 10^3/uL (140-450); Red Blood Cells 3.34 10^6/uL (4.5-5.90); Red Cell Distribution Width 13.6 % (11.8-14.3); White Blood Cell 6.8 10^3/uL (4.4-10.8)
--- NOTE | 2024-03-20 15:30 | ED.PDOC ---
HPI Comments 78-year-old male who comes in with chief complaint of chest pain today. The patient states that he is having some chest tightness which started at about 10:00 a.m. this morning while he was having dialysis. The patient was completely dialyzed and then went home. At home, the patient states that the pain was not 8/10. 911 was called and when the paramedics arrived, the patient had a somewhat elevated heart rate. The patient denies any shortness a breath, nausea or vomiting at this time. The patient was safely transported to our facility. Chief Complaint: Chest Pain Time Seen by MD: 14:20 Primary Care Provider: UNKNOWN Reviewed Notes: Nurses Notes, Passenger Interline Clerk Notes, Medications, Allergies (No allergies to medications) Allergies: Coded Allergies: NO KNOWN ALLERGIES (Unverified , 03/08/20) Home Meds Active Scripts Glipizide (Glipizide) 5 Mg Tab, 5 MG PO BID, #60 MG Prov:ALFIE PEREZ MD 10/27/21 Metoprolol Succinate (Metoprolol Succinate Er) 50 Mg Tab, 1 TAB PO DAILY, #30 TAB 5 Refills Prov:ALFIE PEREZ MD 10/27/21 Famotidine (PEPCID TABLET) 20 Mg Tb, 1 TAB PO BID, #60 TAB Prov:MOLLY FIERRO MD 04/28/20 Cyclobenzaprine Hcl (Cyclobenzaprine Hcl) 5 Mg Tab, 1 TAB PO TID PRN, #21 TAB Prov:MOLLY FIERRO MD 04/28/20 Reported Medications Carvedilol (Carvedilol) 3.125 Mg Tab, 1 TAB PO DAILY 08/28/22 Sevelamer Carbonate (Sevelamer Carbonate) 800 Mg Tab, 1 TAB PO TID 08/28/22 B-Complex W/ C & Folic Acid (Kristen-Stacey Rx) Tab, 1 TAB PO DAILY 08/28/22 Furosemide (Furosemide) 80 Mg Tab, 1 TAB PO BID 08/28/22 Nitroglycerin (Nitroglycerin Lingual) 0.4 Mg/Bassett Spr, 0.4 MG SL, SPR 04/26/20 Aspirin (Aspir-Low) 81 Mg Tab, 81 MG PO DAILY for 30 Days, MG 04/26/20 Isosorbide Mononitrate (Isosorbide Mononitrate Er) 60 Mg Tab, 60 MG PO DAILY for 30 Days, MG 04/26/20 Clopidogrel Bisulfate (Plavix) 75 Mg Tab, 75 MG PO DAILY, TAB 04/26/20 Hydralazine Hcl (Hydralazine Hcl) 50 Mg Tab, 50 MG PO TID for 30 Days, MG 04/26/20 Atorvastatin Calcium (Lipitor) 20 Mg Tab, 20 TAB PO DAILY, TAB 3 Refills 04/26/20 Amlodipine Besylate (Amlodipine Besylate) 5 Mg Tab, 5 MG PO DAILY, MG 04/26/20 Information Source: Patient, Emergency Med Personnel Mode of Arrival: EMS Severity: Moderate Timing: Hours Duration: Since onset Prehospital treatment: Clerical Receptionist Location: Substernal Radiation: No Radiation Quality: Squeezing, Pressure Onset: At Rest Cardiac Risk Factors: Hyperlipidemia, HTN, Diabetes PE Risk Factors: None History of: None Modifying Factors: Nothing Associated Signs and Symptoms: SOB Past Medical History PAST MEDICAL HISTORY: AFIB, CAD, DM, ESRD, High Lipids, HTN Surgical History: CABG, PTCA Surgical History (Other): Te catheter to the right chest area Family History Family History: Family hx of DM Social History Smoker: Non-Smoker Alcohol: Denies ETOH Use Drugs: Denies Drug Use Lives In: Home Constitutional: denies: chills, diaphoresis, fatigue, fever, malaise, sweats, weakness, others EENTM: denies: blurred vision, double vision, ear bleeding, ear discharge, ear drainage, ear pain, ear ringing, eye pain, eye redness, hearing loss, mouth pain, mouth swelling, nasal discharge, nose bleeding, nose congestion, nose pain , photophobia, tearing, throat pain, throat swelling, voice changes, others Respiratory: reports: SOB at rest; denies: cough, hemoptysis, orthopnea, shortness of breath, SOB with excertion, stridor, wheezing, others Cardiovascular: reports: chest pain; denies: dizzy spells, diaphoresis, Dyspnea on exertion, edema, irregular heart beat, left arm pain, lightheadedness, palpitations, PND, syncope, others Gastrointestinal: denies: abdomen distended, abdominal pain, blood streaked bowels, constipated, diarrhea, dysphagia, difficulty swallowing, hematemesis, melena, nausea, poor appetite, poor fluid intake, rectal bleeding, rectal pain, vomiting, others Genitourinary: denies: burning, dysuria, flank pain, frequency, hematuria, incontinence, penile discharge, penile sore, pain, testicle pain, testicle swelling, urgency, others Neurological: denies: dizziness, fainting, headache, left sided numbness, left sided weakness, numbness, paresthesia, pre-existing deficit, right sided numbness, right sided weakness, seizure, speech problems, tingling, tremors, weakness, others Musculoskeletal: denies: back pain, gout, joint pain, joint swelling, muscle pain, muscle stiffness, neck pain, others Integumetry: denies: bruises, change in color, change in hair/nails, dryness, laceration, lesions, lumps, rash, wounds, others Allergic/Immunocompromised: denies: Difficulty Healing, Frequent Infections, Hives, Itching, others Hematologic/Lymphatic: denies: anemia, blood clots, easy bleeding, easy bruising, swollen glands, others Endocrine: denies: excessive hunger, excessive sweating, excessive thirst, excessive urination, flushing, intolerance to cold, intolerance to heat, unexplained weight gain, unexplained weight loss, others Psychiatric: denies: anxiety, bipolar disorder, depression, hopeless, panic disorder, schizophrenia, sleepless, suicidal, others Physical Exam General Appearance: Moderate Distress HEENT: Normal ENT Inspection, Pharynx Normal, TMs Normal Neck: Full Range of Motion, Non-Tender, Normal, Normal Inspection Respiratory: Chest Non-Tender, Lungs Clear, No Accessory Muscle Use, No Respiratory Distress, Normal Breath Sounds Cardiovascular: No Edema, No JVD, No Murmur, No Gallop, Normal Peripheral Pulses, Regular Rate/Rhythm, Other (The patient has a Te catheter to the right chest) Breast Exam: Deferred Gastrointestinal: No Organomegaly, Non Tender, No Pulsatile Mass, Normal Bowel Sounds, Soft Genitalia: Deferred Pelvic: Deferred Rectal: Deferred Extremities: No calf tenderness, Normal capillary refill, Normal inspection, Normal range of motion, Non-tender, No pedal edema Musculoskeletal : Apperance: Normal Neurologic: Alert, life coach II-XII nml as Tested, No Motor Deficits, Normal Affect, Normal Mood, No Sensory Deficits Cerebellar Function: Normal Reflexes: Normal Skin: Dry, Normal Color, Warm Lymphatic: No Adenopathy EKG EKG : Pulse Rate (adult): 90 [place]: Normal Cardiac Rhythm: Afib Block: None ST: Nonsp Was a procedure done? Was a procedure done?: No CP Differential Dx Differential Diagnosis: A-fib, Angina, ID, Pulmonary Embolus Differential Diagnosis: CHF Differential Diagnosis: Pericarditis X-Ray, Labs, Meds, VS Vital Signs Date Time Temp Pulse Resp B/P (MAP) Pulse Ox O2 Delivery O2 Flow Rate FiO2 03/20/24 15:31 79 13 149/75 (99) 98 03/20/24 15:11 81 03/20/24 15:09 79 13 98 Room Air* 0 21 03/20/24 14:24 98.3 90 16 151/74 (99) 99 03/20/24 14:16 90 Lab Test 03/20/24 15:06 Range/Units White Blood Count 6.8 4.4-10.8 10^3/uL Red Blood Count 3.34 L 4.5-5.90 10^6/uL Hemoglobin 10.3 L 13.5-17.5 g/dL Hematocrit 29.9 L 41.0-53.0 % Mean Corpuscular Volume 89.7 80.0-100.0 fL Mean Corpuscular Hemoglobin 30.8 28.0-32.0 pg Mean Corpuscular Hemoglobin Concent 34.3 32.0-36.0 g/dL Red Cell Distribution Width 13.6 11.8-14.3 % Platelet Count 166 140-450 10^3/uL Mean Platelet Volume 7.6 6.9-10.8 fL Neutrophils (%) (Auto) 69.8 37.0-80.0 % Lymphocytes (%) (Auto) 16.5 10.0-50.0 % Monocytes (%) (Auto) 10.6 0.0-12.0 % Eosinophils (%) (Auto) 2.4 0.0-7.0 % Basophils (%) (Auto) 0.7 0.0-2.0 % Neutrophils # (Auto) 4.8 1.6-8.6 10 ^3/uL Lymphocytes # (Auto) 1.1 0.4-5.4 10 ^3/uL Monocytes # (Auto) 0.7 0-1.3 10 ^3/uL Eosinophils # (Auto) 0.2 0-0.8 10 ^3/uL Basophils # (Auto) 0 0-0.2 10 ^3/uL Nucleated Red Blood Cells 0.0 % Sodium Level 134 L 136-145 mmol/L Potassium Level 3.5 3.5-5.1 mmol/L Chloride Level 96 L 98-107 mmol/L Carbon Dioxide Level 31 20-31 mmol/L Anion Gap 7 5-15 Blood Urea Nitrogen 19 9-23 mg/dL Creatinine 3.06 H 0.700-1.30 mg/dL Glomerular Filtration Rate Calc 20 >90 mL/min BUN/Creatinine Ratio 6.2 L 10.0-20.0 Serum Glucose 94 74-106 mg/dL Calcium Level 8.9 8.7-10.4 mg/dL Total Bilirubin 0.5 0.2-1.0 mg/dL Aspartate Amino Transferase (AST) 11 L 13-40 U/L Alanine Aminotransferase (ALT) < 9 7-40 U/L Alkaline Phosphatase 67 46-116 U/L Troponin I High Sensitivity 14 </=54 ng/L B-Type Natriuretic Peptide 700.77 0-100 pg/mL Total Protein 7.0 5.7-8.2 g/dL Albumin 3.9 3.2-4.8 g/dL Current Medications Medications (Trade) Dose Ordered Sig/Michael Route Start Time Stop Time Status Last Admin Aspirin 162 mg ONCE ONCE PO 03/20/24 14:30 03/20/24 14:31 DC 03/20/24 14:51 CXR: IMPRESSION: Mild congestion The patient was given aspirin here in the emergency department's The BNP is 700.77 The patient's CBC shows anemia with a hemoglobin of 10.3 and hematocrit of 29.9 The chemistry panel shows a creatinine of 3.06 The potassium is within normal limits At this time, the patient will be admitted to the hospitalist. The patient was diagnosis is acute myocardial ischemia Images Reviewed?: Images reviewed and evaluated by me Time of 1ST Reevaluation: 15:55 Reevaluation 1ST: Unchanged Patient Education/Counseling: Diagnosis, Treatment, Prognosis Family Education/Counseling: No Family Present Departure 1 Departure Time of Disposition: 15:55 Impression: Primary Impression: Acute myocardial ischemia Additional Impression: ESRD on dialysis Disposition: ADMITTED INPATIENT Admit to: Tele Condition: Fair Critical Care Note Critical Care Time?: Yes (45 min-critical care time only) Stability Stability form required: Yes Unstable for transfer: Telemetry monitoring (Telemetry monitoring required), ED Physician Assesment (Clinical assesment) Heart Score Heart Score: Heart Score Response (Comments) Value History Moderate Suspicious 1 EKG Repolarization Disturb 1 Age >65 2 Risk Factors >3 or Hx ASHD 2 Troponin Normal limit 0 Total 6 I personally scribed for EBONIE MENDOZA MD ([email or web address]) on 03/20/24 at 15:30. Electronically submitted by Faby March ([email or web address]). EBONIE MENDOZA MD Mar 20, 2024 15:30
[2024-03-20 15:39] LABS: Albumin 3.9 g/dL (3.2-4.8); Alkaline Phosphatase 67 U/L (46-116); Anion Gap 7 (5-15); BUN/Creatinine Ratio 6.2 (10.0-20.0); Bilirubin, Total 0.5 mg/dL (0.2-1.0); Blood Urea Nitrogen 19 mg/dL (9-23); Calcium 8.9 mg/dL (8.7-10.4); Carbon Dioxide 31 mmol/L (20-31); Chloride 96 mmol/L (98-107); Glucose 94 mg/dL (74-106); Potassium 3.5 mmol/L (3.5-5.1); Sodium 134 mmol/L (136-145)
[2024-03-20 15:40] LABS: Alanine Aminotransferase < 9 U/L (7-40); Aspartate Aminotransferase 11 U/L (13-40)
--- NOTE | 2024-03-20 18:34 | ECG ---
[facility] Test Date: 2024-03-20 Test Time: 15:11:33 Pat Name: ROSELIA PALMER Department: ED Room: 0245T Gender: M Satellite Tv Technician Installer: ELIAS : 1945 Requested By: EBONIE MENDOZA Order Number: [id number] Reading MD: Hao Herring Measurements Intervals [place] Rate: 81 P: 0 AL: 0 QRS: -6 QRSD: 128 T: 129 QT: 395 QTc: 459 Interpretive Statements Atrial fibrillation LVH with secondary repolarization abnormality Inferior infarct, old Electronically Signed On 03-21-2024 13:12:39 PST by Hao Herring Please click the below link to view image of tracing.
[2024-03-20] MEDS ORDERED: HYDROcodone-ACET 5/325MG TAB PO PRN (20:30)
[2024-03-20] MEDS ORDERED: DOCUSATE SOD 100 MG CAP PO PRN (20:30)
[2024-03-20] MEDS ORDERED: ONDANSETRON HCL 4 MG/2 ML VIAL IV PRN (20:30)
[2024-03-20] MEDS ORDERED: DEXTROSE (50%) 50ML SYRG IV PRN (20:30)
[2024-03-20] MEDS ORDERED: hydrALAZINE HCL 20 MG/ML VL IV PRN (20:30)
[2024-03-20] MEDS: ACCU-CHEK COMFORT CURVE STRIP VI SCH (22:15)
[2024-03-20] MEDS: ATORVASTATIN 20 MG TAB PO SCH (22:22)
[2024-03-20] MEDS: CARVEDILOL 3.125 MG TAB PO SCH (22:22)
[2024-03-20] MEDS: InsuLIN REG 1unit/0.01ml Soln (100units/ml) SC SCH (22:25)
[2024-03-20] MEDS: SODIUM CHLOR 0.9% PF (SALINE LOCK) 10ML VIAL/SYR IV SCH (22:27)
--- NOTE | 2024-03-20 22:53 | DVHHP2 ---
History of Present Illness Reason for Visit: Chest pain History of Present Illness The patient is a 78-year-old male with multiple past medical history including ESRD, hypertension, and DM who presented to [facility] ED with complaint of chest pain. Patient reports feeling chest tightness this morning while he was having dialysis session. Patient was able to complete dialysis session went home, but started having substernal chest pain rating 8/10 numeric scale, getting worse that EMS were called. Patient was seen and evaluated in the ED, laboratory data shows WBC 6.8, hemoglobin 10.3, hematocrit 29.9, platelets 166, sodium 134, potassium 3.5, BUN 19, creatinine 3.06, GFR 20, glucose 94, BNP 700.77, troponin 14, blood pressure 130/73, heart rate 88, temperature 98.4 F, O2 saturation 97% on oxygen. Chest x-ray revealing mild congestion. Please see medication orders section in the computer. On my assessment, patient denies chest pain at this moment, no headache, no dizziness, no diaphoresis, no shortness of breath, no diarrhea, no nausea, no vomiting, no fever, no chills. Patient was admitted for further evaluation and medical management. Past Medical History AFIB, CAD, DM, ESRD, High Lipids, HTN Past Surgical History CABG, PTCA, Te catheter to the right chest area Family History Reviewed, noncontributory to the management of this case. Past Social History The patient lives at home, denies smoking, alcohol or illicit drugs abuse. Review of Systems Constitutional: Yes: Weakness; No: Fever, Chills, Sweats, Malaise, Other Eyes: No: Pain, Vision change, Conjunctivae inflammation, Eyelid inflammation, Other, Redness ENT: No: Ear pain, Ear discharge, Nose pain, Nose discharge, Nose congestion, Mouth pain, Mouth swelling, Throat pain, Throat swelling, Other Respiratory: Shortness of breath; No: Cough, Dry, SOB with excertion, Wheezing, Hemoptysis, Pleuritic Pain, Sputum, Wheezing, Other Cardiovascular: Chest Pain; No: Palpitations, Orthopnea, Paroxysmal Noc. Dyspnea, Edema, Lt Headedness, Other Gastrointestinal: No: Nausea, Vomiting, Abdominal Pain, Diarrhea, Constipation, Melena, Hematochezia, Other Genitourinary: No Dysuria, No Frequency, No Incontinence, No Hematuria, No Retention, No Other Musculoskeletal: No: other, neck pain, shoulder pain, arm pain, back pain, hand pain, leg pain, foot pain Skin: No: Rash, Lesions, Jaundice, Bruising, Other Neurological: No: Weakness, Numbness, Incoordination, Change in speech, Confusion, Seizures, Other Allergies: Coded Allergies: NO KNOWN ALLERGIES (Unverified , 03/08/20) Medications Current Medications Medications Dose Ordered Sig/Michael Route Start Time Stop Time Status Last Admin Dose Admin Aspirin 81 mg DAILY PO 03/21/24 10:00 Clopidogrel Bisulfate 75 mg DAILY PO 03/21/24 10:00 Sevelamer HCl 800 mg TIDWM PO 03/21/24 08:00 Multivit/Ca Carb/ B Cmplx/FA/Prenat 1 tab DAILY PO 03/21/24 10:00 Amlodipine Besylate 5 mg DAILY PO 03/21/24 10:00 Hydralazine HCl 10 mg Q6HP PRN IV 03/20/24 20:30 Atorvastatin Calcium 10 mg HS PO 03/20/24 22:00 03/20/24 22:22 10 MG Carvedilol 3.125 mg Q12HR PO 03/20/24 22:00 03/20/24 22:22 3.125 MG Diagnostic Test (Pha) 1 strip ACHS 03/20/24 22:00 03/20/24 22:15 1 STRIP Insulin Human Regular ACHS SC 03/20/24 22:00 03/20/24 22:25 2 UNITS Dextrose 50 ml UD PRN IV 03/20/24 20:30 Sodium Chloride 10 ml Q8HR IV 03/20/24 22:00 03/20/24 22:27 10 ML Acetaminophen/ Hydrocodone Bitart 1 tab Q4HP PRN PO 03/20/24 20:30 Ondansetron HCl 4 mg Q4HP PRN IV 03/20/24 20:30 Docusate Sodium 100 mg BIDPRN PRN PO 03/20/24 20:30 Acetaminophen 650 mg Q6HP PRN PO 03/20/24 20:30 Famotidine 10 mg EOD IV 03/21/24 10:00 Exam Vital Signs Vital Signs Date Time Temp Pulse Resp B/P (MAP) Pulse Ox O2 Delivery O2 Flow Rate FiO2 03/20/24 22:22 68 144/62 03/20/24 22:21 13 97 1/9/25 19:46 98.4 98.4 03/20/24 15:09 Room Air* 0 21 General Appearance: Alert, Oriented X3, Cooperative, No acute distress HEENT: Atraumatic, PERRLA, EOMI, Mucous membr. moist/pink Respiratory: Clear to auscultation, Normal air movement Cardiovascular: Regular rate, Normal S1, Normal S2, No murmurs Abdominal: Normal bowel sounds, Soft, No tenderness, No hepatospenomegaly, No masses Extremities: No clubbing, No cyanosis, No edema, Normal pulses, No tenderness/swelling Skin: No rashes, No breakdown, No significant lesion Neuro: Normal speech, Normal tone, Sensation intact, Cranial nerves 3-12 NL, Reflexes 2+ Psych/Mental Status: Mental status NL, Mood NL Labs/Xrays Labs Test 03/20/24 22:14 03/20/24 18:50 03/20/24 15:06 Range/Units POC Glucose 143 H 70-106 mg/dl Troponin I High Sensitivity 13 </=54 ng/L White Blood Count 6.8 4.4-10.8 10^3/uL Red Blood Count 3.34 L 4.5-5.90 10^6/uL Hemoglobin 10.3 L 13.5-17.5 g/dL Hematocrit 29.9 L 41.0-53.0 % Mean Corpuscular Volume 89.7 80.0-100.0 fL Mean Corpuscular Hemoglobin 30.8 28.0-32.0 pg Mean Corpuscular Hemoglobin Concent 34.3 32.0-36.0 g/dL Red Cell Distribution Width 13.6 11.8-14.3 % Platelet Count 166 140-450 10^3/uL Mean Platelet Volume 7.6 6.9-10.8 fL Neutrophils (%) (Auto) 69.8 37.0-80.0 % Lymphocytes (%) (Auto) 16.5 10.0-50.0 % Monocytes (%) (Auto) 10.6 0.0-12.0 % Eosinophils (%) (Auto) 2.4 0.0-7.0 % Basophils (%) (Auto) 0.7 0.0-2.0 % Neutrophils # (Auto) 4.8 1.6-8.6 10 ^3/uL Lymphocytes # (Auto) 1.1 0.4-5.4 10 ^3/uL Monocytes # (Auto) 0.7 0-1.3 10 ^3/uL Eosinophils # (Auto) 0.2 0-0.8 10 ^3/uL Basophils # (Auto) 0 0-0.2 10 ^3/uL Nucleated Red Blood Cells 0.0 % Sodium Level 134 L 136-145 mmol/L Potassium Level 3.5 3.5-5.1 mmol/L Chloride Level 96 L 98-107 mmol/L Carbon Dioxide Level 31 20-31 mmol/L Anion Gap 7 5-15 Blood Urea Nitrogen 19 9-23 mg/dL Creatinine 3.06 H 0.700-1.30 mg/dL Glomerular Filtration Rate Calc 20 >90 mL/min BUN/Creatinine Ratio 6.2 L 10.0-20.0 Serum Glucose 94 74-106 mg/dL Calcium Level 8.9 8.7-10.4 mg/dL Total Bilirubin 0.5 0.2-1.0 mg/dL Aspartate Amino Transferase (AST) 11 L 13-40 U/L Alanine Aminotransferase (ALT) < 9 7-40 U/L Alkaline Phosphatase 67 46-116 U/L B-Type Natriuretic Peptide 700.77 0-100 pg/mL Total Protein 7.0 5.7-8.2 g/dL Albumin 3.9 3.2-4.8 g/dL PATIENT: ROSELIA PALMER ACCT: [id number] UNIT: [id number] : 1945 LOC: ER ROOM / BED: / AGE / SEX: 78 / M ADM STATUS: REG ER SERVICE 1426 ORDERING PHYSICIAN: EBONIE MENDOZA MD PROCEDURE(s): CXRP - CHEST PORTABLE REASON: cp ORDER NUMBER(s): [id number], ACCESSION NUMBER(s): [id number] CHEST RADIOGRAPH Indication: cp Technique: Single frontal view of the chest was obtained COMPARISON: XY CHEST PORTABLE on DOS: 08/28/22, CHEST XRAY 1 VIEW on DOS: 10/26/21 FINDINGS: Lines and Tubes: Tunneled right central venous catheter in satisfactory position. Median sternotomy. Lungs: Mild congestion Pleura: No effusion. No pneumothorax. Cardiomediastinal contours: Unremarkable Bones: Unremarkable IMPRESSION: Mild congestion Assessment/Plan Assessment/Plan Acute myocardial ischemia Generalized weakness End-stage renal disease on hemodialysis Acute exacerbation of congestive heart failure Plan 1. Admit to telemetry unit 2. Breathing treatment 3. Pain control management 4. Management of fluids and electrolytes 5. Consultation for Nephrology 6. Diagnostic tests chest x-ray 7. DVT prophylaxis-on aspirin 8. Repeat labs CBC, CMP in a.m. 9. Continue with current medical management 10. Treatment plan discussed with patient and RN. Patient verbalized understanding. Plan discussed with: Patient, Other (RN) My Orders Orders - JOE KWONG DNP Procedure Category Date Status Time Consistent DIET 03/21/24 Transmitted Carb(Ccho)Diabetes Breakfast Aspirin Tablet PHA 03/21/24 In Process 10:00 Clopidogrel Bisulfate PHA 03/21/24 In Process (Plavix) 10:00 Sevelamer (Renagel) PHA 03/21/24 In Process 08:00 B-Complex W/ C & PHA 03/21/24 In Process Folic Tablet 10:00 Amlodipine Tablet PHA 03/21/24 In Process (Norvasc Tablet) 10:00 Hydralazine Injection PHA 03/20/24 In Process (Apresoline Inject 20:30 Atorvastatin (Lipitor) PHA 03/20/24 In Process 22:00 Carvedilol Tablet PHA 03/20/24 In Process (Coreg Tablet) 22:00 Glucose Blood PHA 03/20/24 In Process (Accu-Chek Comfort 22:00 Insulin R (Human) PHA 03/20/24 In Process (Insulin R) 22:00 Dextrose 50% Syringe PHA 03/20/24 In Process 20:30 Allergies LUKE 03/20/24 In Process 20:18 Code Status CODE 03/20/24 Transmitted 20:18 Renal DIET 03/21/24 Transmitted Standard(2gna,3gk,Lopho) Breakfast Sodium Chloride Lock PHA 03/20/24 In Process (Saline Lock Ns) 22:00 Oxygen Per Hour RT 03/20/24 Transmitted 20:18 Hydrocodone-Acet PHA 03/20/24 In Process 5/325mg Tab ([place] 20:30 Ondansetron Hcl PHA 03/20/24 In Process (Zofran) 20:30 Docusate Sodium PHA 03/20/24 In Process Capsule (Colace 20:30 Fall Risk Precautions LUKE 1/9/[address] 20:18 Complete Blood Count LAB 03/21/24 Verified 04:00 Comprehensive LAB 03/21/24 Verified Metabolic Panel 04:00 Condition: Serious LUKE 03/20/24 In Process 20:18 Acetaminophen Tablet PHA 03/20/24 In Process (Tylenol Tablet) 20:30 Sequential LUKE 03/20/24 In Process Compression Device Famotidine Injection PHA 03/21/24 In Process (Pepcid Injection) 10:00 Problem List: (1) Acute myocardial ischemia (2) Generalized weakness (3) End-stage renal disease on hemodialysis (4) Acute exacerbation of congestive heart failure Date of Service: Mar 20, 2024 Billing Provider: JOE KWONG DNP Common Visit Codes: [id number] INP/OBS CARE (HIGH) JOE KWONG DNP Mar 20, 2024 22:53
[2024-03-20] MEDS ORDERED: MORPHINE SULFATE INJ 2 MG/ml SYRG IV PRN (23:00)
[2024-03-20] MEDS ORDERED: NITROGLYCERIN 0.4 MG SL TAB SL PRN (23:00)
[2024-03-21] VITALS (9 sets, daily range): BP systolic 130–151; BP diastolic 56–67; PULSE 65–79; RESP 13–18; TEMP 97.3–98.8; O2SAT 97–100
--- NOTE | 2024-03-21 07:20 | DVHINCON2 ---
Date of service: Mar 21, 2024 Referring Physician Michael Joseph NP Reason for Consultation ESRD History of Present Illness This is a 78-year-old male with multiple past medical history including ESRD, hypertension, and DM who presented to [facility] ED with complaint of chest pain. Chest tightness started while he was having dialysis session. Patient was able to complete dialysis session went home, but started having substernal chest pain rating 8/10 numeric scale, getting worse that EMS were called.Also noted that his HR was elevated . Took coreg x 2 with some improvement in the rate . Patient was seen and evaluated in the ED and admitted for further evaluation . Nephrology consulted for continuation of dialysis . Last HD yesterday Past Medical History Past Medical History AFIB, CAD, DM, ESRD, High Lipids, HTN Past Surgical History Past Surgical History CABG, PTCA, Te catheter to the right chest area Family History: Diabetes mellitus G8 FATHER G8 BROTHER Hypertension G8 MOTHER Social History The patient lives at home, denies smoking, alcohol or illicit drugs abuse. Allergies: Coded Allergies: NO KNOWN ALLERGIES (Unverified , 03/08/20) Home Meds Active Scripts Glipizide (Glipizide) 5 Mg Tab, 5 MG PO BID, #60 MG Prov:ALFIE PEREZ MD 10/27/21 Metoprolol Succinate (Metoprolol Succinate Er) 50 Mg Tab, 1 TAB PO DAILY, #30 TAB 5 Refills Prov:ALFIE PEREZ MD 10/27/21 Famotidine (PEPCID TABLET) 20 Mg Tb, 1 TAB PO BID, #60 TAB Prov:MOLLY FIERRO MD 04/28/20 Cyclobenzaprine Hcl (Cyclobenzaprine Hcl) 5 Mg Tab, 1 TAB PO TID PRN, #21 TAB Prov:MOLLY FIERRO MD 04/28/20 Reported Medications Carvedilol (Carvedilol) 3.125 Mg Tab, 1 TAB PO DAILY 08/28/22 Sevelamer Carbonate (Sevelamer Carbonate) 800 Mg Tab, 1 TAB PO TID 08/28/22 B-Complex W/ C & Folic Acid (Kristen-Stacey Rx) Tab, 1 TAB PO DAILY 08/28/22 Furosemide (Furosemide) 80 Mg Tab, 1 TAB PO BID 08/28/22 Nitroglycerin (Nitroglycerin Lingual) 0.4 Mg/Gulliver Spr, 0.4 MG SL, SPR 04/26/20 Aspirin (Aspir-Low) 81 Mg Tab, 81 MG PO DAILY for 30 Days, MG 04/26/20 Isosorbide Mononitrate (Isosorbide Mononitrate Er) 60 Mg Tab, 60 MG PO DAILY for 30 Days, MG 04/26/20 Clopidogrel Bisulfate (Plavix) 75 Mg Tab, 75 MG PO DAILY, TAB 04/26/20 Hydralazine Hcl (Hydralazine Hcl) 50 Mg Tab, 50 MG PO TID for 30 Days, MG 04/26/20 Atorvastatin Calcium (Lipitor) 20 Mg Tab, 20 TAB PO DAILY, TAB 3 Refills 04/26/20 Amlodipine Besylate (Amlodipine Besylate) 5 Mg Tab, 5 MG PO DAILY, MG 04/26/20 Current Medications Current Medications Medications (Trade) Dose Ordered Sig/Michael Route PRN Reason Start Time Stop Time Status Last Admin Aspirin 81 mg DAILY PO 03/21/24 10:00 Clopidogrel Bisulfate (Plavix) 75 mg DAILY PO 03/21/24 10:00 Sevelamer HCl (Renagel) 800 mg TIDWM PO 03/21/24 08:00 Multivit/Ca Carb/ B Cmplx/FA/Prenat (Nephro-Stacey Tablet) 1 tab DAILY PO 03/21/24 10:00 Amlodipine Besylate (Norvasc Tablet) 5 mg DAILY PO 03/21/24 10:00 Hydralazine HCl (Apresoline Injection) 10 mg Q6HP PRN IV SBP>150 03/20/24 20:30 Atorvastatin Calcium (Lipitor) 10 mg HS PO 03/20/24 22:00 03/20/24 22:22 Carvedilol (Coreg Tablet) 3.125 mg Q12HR PO 03/20/24 22:00 03/20/24 22:22 Diagnostic Test (Pha) (Accu-Chek Comfort Curve T) 1 strip ACHS 03/20/24 22:00 03/21/24 06:42 Insulin Human Regular (InsuLIN R) ACHS SC 03/20/24 22:00 03/20/24 22:25 Dextrose 50 ml UD PRN IV Blood Sugar LESS THAN 60 03/20/24 20:30 Sodium Chloride (Saline Lock Ns) 10 ml Q8HR IV 03/20/24 22:00 03/20/24 22:27 Acetaminophen/ Hydrocodone Bitart ([place] 5/325MG Tab) 1 tab Q4HP PRN PO MODERATE PAIN (4-6 PAIN SCALE) 03/20/24 20:30 Ondansetron HCl (Zofran) 4 mg Q4HP PRN IV NAUSEA / VOMITING 03/20/24 20:30 Docusate Sodium (Colace Capsule) 100 mg BIDPRN PRN PO FOR CONSTIPATION 03/20/24 20:30 Acetaminophen (Tylenol Tablet) 650 mg Q6HP PRN PO PAIN SCALE 1-3 OR TEMP>100.4 03/20/24 20:30 Famotidine (Pepcid Injection) 10 mg EOD IV 03/21/24 10:00 Nitroglycerin (Ntrostat Sublingual) 0.4 mg Q5MINP PRN SL FOR CHEST PAIN 03/20/24 23:00 Morphine Sulfate 2 mg Q30M PRN IV FOR CHEST PAIN 03/20/24 23:00 Review of Systems 12 point ROS negative except as in HPI Vital Signs Vital Signs Date Time Temp Pulse Resp B/P (MAP) Pulse Ox O2 Delivery O2 Flow Rate FiO2 03/21/24 04:58 98.2 78 15 141/66 (91) 100 98.2 03/21/24 00:47 Room Air* 0 21 Physical Exam General Appearance: Alert, Oriented X3 HEENT: Atraumatic, PERRLA, EOMI, Mucous membr. moist/pink Respiratory: Clear to auscultation, Normal air movement Cardiovascular: Regular rate, Normal S1, Normal S2, No murmurs Abdominal: Normal bowel sounds, Soft, No tenderness, No hepatospenomegaly, No masses Extremities: No clubbing, No cyanosis, No edema, Normal pulses, No tenderness/swelling Skin: No rashes, No breakdown, No significant lesion Neuro: Normal speech, Normal tone, Sensation intact, Cranial nerves 3-12 NL, Reflexes 2+ Labs/Diagnostic Data Labs Test 03/21/24 06:32 03/20/24 18:50 03/20/24 15:06 Range/Units POC Glucose 109 H 70-106 mg/dl Troponin I High Sensitivity 13 </=54 ng/L White Blood Count 6.8 4.4-10.8 10^3/uL Red Blood Count 3.34 L 4.5-5.90 10^6/uL Hemoglobin 10.3 L 13.5-17.5 g/dL Hematocrit 29.9 L 41.0-53.0 % Mean Corpuscular Volume 89.7 80.0-100.0 fL Mean Corpuscular Hemoglobin 30.8 28.0-32.0 pg Mean Corpuscular Hemoglobin Concent 34.3 32.0-36.0 g/dL Red Cell Distribution Width 13.6 11.8-14.3 % Platelet Count 166 140-450 10^3/uL Mean Platelet Volume 7.6 6.9-10.8 fL Neutrophils (%) (Auto) 69.8 37.0-80.0 % Lymphocytes (%) (Auto) 16.5 10.0-50.0 % Monocytes (%) (Auto) 10.6 0.0-12.0 % Eosinophils (%) (Auto) 2.4 0.0-7.0 % Basophils (%) (Auto) 0.7 0.0-2.0 % Neutrophils # (Auto) 4.8 1.6-8.6 10 ^3/uL Lymphocytes # (Auto) 1.1 0.4-5.4 10 ^3/uL Monocytes # (Auto) 0.7 0-1.3 10 ^3/uL Eosinophils # (Auto) 0.2 0-0.8 10 ^3/uL Basophils # (Auto) 0 0-0.2 10 ^3/uL Nucleated Red Blood Cells 0.0 % Sodium Level 134 L 136-145 mmol/L Potassium Level 3.5 3.5-5.1 mmol/L Chloride Level 96 L 98-107 mmol/L Carbon Dioxide Level 31 20-31 mmol/L Anion Gap 7 5-15 Blood Urea Nitrogen 19 9-23 mg/dL Creatinine 3.06 H 0.700-1.30 mg/dL Glomerular Filtration Rate Calc 20 >90 mL/min BUN/Creatinine Ratio 6.2 L 10.0-20.0 Serum Glucose 94 74-106 mg/dL Calcium Level 8.9 8.7-10.4 mg/dL Total Bilirubin 0.5 0.2-1.0 mg/dL Aspartate Amino Transferase (AST) 11 L 13-40 U/L Alanine Aminotransferase (ALT) < 9 7-40 U/L Alkaline Phosphatase 67 46-116 U/L B-Type Natriuretic Peptide 700.77 0-100 pg/mL Total Protein 7.0 5.7-8.2 g/dL Albumin 3.9 3.2-4.8 g/dL Assessment ESRD on HD Chest pain HTN HLD Hyperphosphatemia Plan/Recommendation Electrolytes WNL . HD in AM Cardiology evaln. Plan discussed with: Patient IMAN WAY MD Mar 21, 2024 07:19
--- NOTE | 2024-03-21 07:45 | ECG ---
[facility] Test Date: 2024-03-20 Test Time: 14:16:00 Pat Name: ROSELIA PALMER Department: ED Room: 0245T A Gender: M Information Resources Director: ELIAS : 1945 Requested By: EBONIE MENDOZA Order Number: [id number] Reading MD: Hao Herring Measurements Intervals [place] Rate: 90 P: 0 [place]: 0 QRS: 39 QRSD: 95 T: 74 QT: 402 QTc: 492 Interpretive Statements Atrial fibrillation Borderline prolonged QT interval Electronically Signed On 03-21-2024 13:12:29 PST by Hao Herring Please click the below link to view image of tracing.
--- NOTE | 2024-03-21 07:50 | ECG ---
[facility] Test Date: 2024-03-20 Test Time: 17:11:53 Pat Name: ROSELIA PALMER Department: ER Room: 0245T A Gender: M Job Compositor: Riky : 1945 Requested By: EBONIE MENDOZA Order Number: [id number] Reading MD: Hao Herring Measurements Intervals [place] Rate: 80 P: 0 [place]: 0 QRS: -5 QRSD: 100 T: 143 QT: 398 QTc: 460 Interpretive Statements Atrial fibrillation Abnormal T, consider ischemia, lateral leads Electronically Signed On 03-21-2024 13:13:04 PST by Hao Herring Please click the below link to view image of tracing.
[2024-03-21 08:21] LABS: Basophils # (auto) 0 10 ^3/uL (0-0.2); Basophils % (auto) 0.5 % (0.0-2.0); Eosinophils # (auto) 0.1 10 ^3/uL (0-0.8); Eosinophils % (auto) 2.2 % (0.0-7.0); Hematocrit 29.6 % (41.0-53.0); Hemoglobin 10.5 g/dL (13.5-17.5); Lymphocytes # (auto) 1.2 10 ^3/uL (0.4-5.4); Lymphocytes % (auto) 19.8 % (10.0-50.0); Mean Corpuscular Hemoglobin 31.5 pg (28.0-32.0); Mean Corpuscular Hgb Conc. 35.3 g/dL (32.0-36.0); Mean Corpuscular Volume 89.2 fL (80.0-100.0); Monocytes # (auto) 0.7 10 ^3/uL (0-1.3); Neutrophils % (auto) 66.5 % (37.0-80.0); Platelet Count (auto) 174 10^3/uL (140-450); Red Blood Cells 3.32 10^6/uL (4.5-5.90); Red Cell Distribution Width 13.7 % (11.8-14.3)
[2024-03-21 08:26] LABS: Alkaline Phosphatase 64 U/L (46-116); Anion Gap 8 (5-15); BUN/Creatinine Ratio 7.1 (10.0-20.0); Calcium 8.9 mg/dL (8.7-10.4); Carbon Dioxide 27 mmol/L (20-31); Chloride 100 mmol/L (98-107); Potassium 3.6 mmol/L (3.5-5.1)
[2024-03-21 08:27] LABS: Albumin 3.8 g/dL (3.2-4.8)
[2024-03-21 08:28] LABS: Bilirubin, Total 0.6 mg/dL (0.2-1.0); Total Protein 6.7 g/dL (5.7-8.2)
[2024-03-21 08:30] LABS: Alanine Aminotransferase < 9 U/L (7-40); Aspartate Aminotransferase 10 U/L (13-40); Blood Urea Nitrogen 29 mg/dL (9-23); Glucose 110 mg/dL (74-106); Sodium 135 mmol/L (136-145)
[2024-03-21] MEDS: SEVELAMER 800 MG TAB PO SCH (08:48)
[2024-03-21] MEDS: amLODIPine BESYLATE 5 MG TAB PO SCH (08:50)
[2024-03-21] MEDS: B-COMPLEX W/ C & FOLIC ACID(NEPHROVITE TAB) PO SCH (08:50)
[2024-03-21] MEDS: CLOPIDOGREL BISULFATE 75 MG TAB PO SCH (08:51)
[2024-03-21] MEDS: FAMOTIDINE (10MG/ML) 2ML VL IV SCH (10:44)
[2024-03-21] MEDS: ASPirin 81 mg TAB PO SCH (10:44)
--- NOTE | 2024-03-21 20:26 | DVHPN2 ---
Assessment/Plan Assessment/Plan Progress note Subjective 78 M with ESRD on HD with davita, CAD s/p ROSETTA and CABG admitted for chest pain. Patient denied chest pain, reporting chest tightness that has resolved now. on admission presented with tachycardia. Seen by renal, for HD. Also reported a lot of life stressor recently, with severe dementia and recently put down his dog. Physical exam alert oriented x3 clear breath sounds s1 s2 irregular, systolic murmur abdomen soft nontender no LE edema Lab trop WNL cr elevated ESRD Assessment and plan ESRD on HD CAD s/p ROSETTA and CABG Chest tightness, ACS ruled out, r/o symptomatic hyperphos 2/2 ESRD hypocal 2/2 ESRD anemia chronic disease renal consult appreciated for HD echo sevelamer resume home meds if echo normal, can be DC after routine HD diet renal DVT ppx lovenox Plan discussed with: Patient Date of Service: Mar 21, 2024 Billing Provider: CARLOTA RUSHING MD Common Visit Codes: [id number] INP/OBS CARE(HIGH) CARLOTA RUSHING MD Mar 21, 2024 20:26
[2024-03-22] VITALS (8 sets, daily range): BP systolic 111–157; BP diastolic 61–71; PULSE 67–77; RESP 17–18; TEMP 97.9–98.7; O2SAT 98–100
[2024-03-22 06:57] LABS: Anion Gap 8 (5-15); Carbon Dioxide 26 mmol/L (20-31); Chloride 99 mmol/L (98-107); Potassium 3.9 mmol/L (3.5-5.1)
[2024-03-22 06:58] LABS: Calcium 8.8 mg/dL (8.7-10.4)
[2024-03-22] MEDS ORDERED: SODIUM CHL 0.9% 1000 ML BAG XX ONE (07:00)
[2024-03-22 07:03] LABS: BUN/Creatinine Ratio 8.1 (10.0-20.0)
[2024-03-22 07:11] LABS: Blood Urea Nitrogen 41 mg/dL (9-23); Glucose 195 mg/dL (74-106); Sodium 133 mmol/L (136-145)
[2024-03-22] MEDS: ENOXAPARIN SOD 30 MG/0.3 ML SYRINGE SC SCH (09:00)
[2024-03-22] MEDS: ACETAMINOPHEN 325 MG TAB PO PRN (12:51)
[2024-03-22] MEDS: InsuLIN REG 1unit/0.01ml Soln (100units/ml) SC SCH (12:52)
--- NOTE | 2024-03-22 15:06 | DVHPN2 ---
Assessment/Plan Assessment/Plan Progress note Subjective 78 M with ESRD on HD with davita, CAD s/p ROSETTA and CABG admitted for chest pain. Patient denied chest pain, reporting chest tightness that has resolved now. on admission presented with tachycardia. Seen by renal, for HD. Also reported a lot of life stressor recently, with severe dementia and recently put down his dog. seen by me today during rounds no complaint, pending HD today. echo done pending read. plan for discharge tomorrow Physical exam alert oriented x3 clear breath sounds s1 s2 irregular, systolic murmur abdomen soft nontender no LE edema Lab trop WNL cr elevated ESRD Assessment and plan ESRD on HD CAD s/p ROSETTA and CABG Chest tightness, ACS ruled out, r/o symptomatic hyperphos 2/2 ESRD hypocal 2/2 ESRD anemia chronic disease renal consult appreciated for HD echo sevelamer resume home meds if echo normal, can be DC after routine HD diet renal DVT ppx lovenox Plan discussed with: Patient My Orders Orders - CARLOTA RUSHING MD Procedure Category Date Status Time Enoxaparin Sodium PHA 03/22/24 In Process (Lovenox) 10:00 Insulin R (Human) PHA 03/22/24 In Process (Insulin R) 11:30 Date of Service: Mar 22, 2024 Billing Provider: CARLOTA RUSHING MD Common Visit Codes: [id number] INP/OBS CARE(HIGH) CARLOTA RUSHING MD Mar 22, 2024 15:05
--- NOTE | 2024-03-22 22:23 | DVHSR ---
APPROVED REPORT EXAM: Two-dimensional and M-mode echocardiogram with Doppler and color Doppler. Blood Pressure: 143/61 mmHg INDICATION r/o aortic stenosis RISK FACTORS Height: 5'7, Weight: 163 DIMENSIONS LVDd4.6 (3.8-5.7cm)LA (2D)4.8 (1.9-4.0cm)Aortic Root3.4 (2.0-3.7cm) LVDs3.5 (2.5-4.0cm)LA (MM) (1.9-4.0cm)Aortic Cusp Exc1.2 (1.5-2.0cm) EF (%) 50.0 (55-70%)Rt. Atrium4.3 (1.9-4.0cm)Asc. Aorta3.1 cm IVSd0.9 (0.7-1.1cm)RV (D)4.5 (1.8-2.4cm) PWd0.9 (0.7-1.1cm) Mitral Valve MitralMitral Stenosis E wave1.33m/sMV Mean GR.mmHg A wave0.30m/sMV Peak GR.136mmHg E/A ratio4.42D MVAcm2 DECEL [id number] 1/2 Timems Aortic Valve Aortic ValveAortic Stenosis V10.69m/Latrice Mean GR.5mmHg V21.37m/Latrice Peak GR.7mmHg LVOT Diameter2.2 (1.8-2.4cm)Doppler AVA1.91cm2 Pulmonic Valve V20.83m/s Tricuspid Valve TR Velocity2.74m/s [id number] Conclusion LV EJECTION FRACTION IS 60% DYSKINESIS OF IVS MODERATELY DILATED RV IT IS DILATATION AND EARLY RV FAILURE MODERATELY DILATED LA AND RA MODERATE DEGREE MR GROSSLY NORMAL VALVES NO EFFUSION
[2024-03-23] VITALS (7 sets, daily range): BP systolic 142–162; BP diastolic 67–74; PULSE 65–82; RESP 17–18; TEMP 36.6; O2SAT 98–100
--- NOTE | 2024-03-23 19:36 | DVHDS2 ---
Discharge Summary Date of Admission Mar 20, 2024 at 22:52 Date of Discharge: Mar 23, 2024 Labs/Diagnostic Data: Laboratory Results Test 03/23/24 11:11 03/22/24 10:22 03/22/24 05:33 03/21/24 06:38 POC Glucose 193 mg/dl (70-106) Sodium Level 133 mmol/L (136-145) Potassium Level 3.9 mmol/L (3.5-5.1) Chloride Level 99 mmol/L (98-107) Carbon Dioxide Level 26 mmol/L (20-31) Anion Gap 8 (5-15) Blood Urea Nitrogen 41 mg/dL (9-23) Creatinine 5.06 mg/dL (0.700-1.30) Glomerular Filtration Rate Calc 11 mL/min (>90) BUN/Creatinine Ratio 8.1 (10.0-20.0) Serum Glucose 195 mg/dL (74-106) Calcium Level 8.8 mg/dL (8.7-10.4) White Blood Count 6.0 10^3/uL (4.4-10.8) Red Blood Count 3.32 10^6/uL (4.5-5.90) Hemoglobin 10.5 g/dL (13.5-17.5) Hematocrit 29.6 % (41.0-53.0) Mean Corpuscular Volume 89.2 fL (80.0-100.0) Mean Corpuscular Hemoglobin 31.5 pg (28.0-32.0) Mean Corpuscular Hemoglobin Concent 35.3 g/dL (32.0-36.0) Red Cell Distribution Width 13.7 % (11.8-14.3) Platelet Count 174 10^3/uL (140-450) Mean Platelet Volume 7.9 fL (6.9-10.8) Neutrophils (%) (Auto) 66.5 % (37.0-80.0) Lymphocytes (%) (Auto) 19.8 % (10.0-50.0) Monocytes (%) (Auto) 11.0 % (0.0-12.0) Eosinophils (%) (Auto) 2.2 % (0.0-7.0) Basophils (%) (Auto) 0.5 % (0.0-2.0) Neutrophils # (Auto) 4.0 10 ^3/uL (1.6-8.6) Lymphocytes # (Auto) 1.2 10 ^3/uL (0.4-5.4) Monocytes # (Auto) 0.7 10 ^3/uL (0-1.3) Eosinophils # (Auto) 0.1 10 ^3/uL (0-0.8) Basophils # (Auto) 0 10 ^3/uL (0-0.2) Nucleated Red Blood Cells 0.0 % Total Bilirubin 0.6 mg/dL (0.2-1.0) Aspartate Amino Transferase (AST) 10 U/L (13-40) Alanine Aminotransferase (ALT) < 9 U/L (7-40) Alkaline Phosphatase 64 U/L (46-116) Total Protein 6.7 g/dL (5.7-8.2) Albumin 3.8 g/dL (3.2-4.8) Test 03/20/24 18:50 03/20/24 15:06 Troponin I High Sensitivity 13 ng/L (</=54) B-Type Natriuretic Peptide 700.77 pg/mL (0-100) Other Laboratory Tests 03/22/24 05:33 03/21/24 06:38 Brief Hx & Hospital Course: 78 M with ESRD on HD with davita, CAD s/p ROSETTA and CABG admitted for chest pain. Patient denied chest pain, reporting chest tightness that has resolved now. on admission presented with tachycardia. Seen by renal, for HD. Also reported a lot of life stressor recently, with severe dementia and recently put down his dog. Echo wnl, received HD, symptoms iomproved, stable to dc to continue HD Condition at Discharge: Good Final Diagnosis/Problems List chest pain non cardiac ESRD on HD Discharge Disposition: Home Discharge Instruct/Medications Diet: Renal Activity: No Restrictions, As Tolerated 36 Discharge Statement: "Patient was advised to return to the ER or call 911 if any headaches, dizziness, shortness of breath, chest pain, abdominal pain, bleeding, fevers, or worsening of medical condition. Patient was counseled about treatment plan, medications, possible side effects, patientverbalized understanding. All questions were answered to the best of my ability. This discharge took greater then 30 minutes in planning, reviewing documentation, counseling the patient, and discussing with other team members." ASSESSMENT ASSESSMENT Assessment ESRD on HD CAD s/p ROSETTA and CABG Chest tightness, ACS ruled out, ruled out, likely life stressor related hyperphos 2/2 ESRD hypocal 2/2 ESRD anemia chronic disease Date of Service: Mar 23, 2024 Billing Provider: CARLOTA RUSHING MD Common Visit Codes: [id number] DISCH DAY >30min CARLOTA RUSHING MD Mar 23, 2024 19:36
[2024-03-24 09:09] LABS: Hepatitis A Ab IgM Negative; Hepatitis B Core IgM Negative (Negative); Hepatitis B Surface Antigen Negative (Negative); Hepatitis C Antibody Negative (Negative)
== END 2024-03-23 16:40 | disposition home or self-care (01) | DRG 308 ==
LOC: ER 14:14 → EDBD 14:14 → TELE-EAST 22:35 → TELE 22:52 → TELE-EAST 23:48
PROVIDERS: ADMIT Student in an Organized Health Care Education/Training Program; ATTEND Nurse Practitioner Family
PROC: 5A1D70Z Performance of Urinary Filtration, Intermittent, Less than 6 Hours Per Day (ICD-10-PCS; principal; 2024-03-22)
DX: I48.20 Chronic atrial fibrillation, unspecified (principal); N18.6 End stage renal disease; I13.2 Hypertensive heart and chronic kidney disease with heart failure and with stage 5 chronic kidney disease, or end stage renal disease; I50.42 Chronic combined systolic (congestive) and diastolic (congestive) heart failure; I50.812 Chronic right heart failure; I25.10 Atherosclerotic heart disease of native coronary artery without angina pectoris; E83.39 Other disorders of phosphorus metabolism; E11.22 Type 2 diabetes mellitus with diabetic chronic kidney disease; E78.5 Hyperlipidemia, unspecified; D63.8 Anemia in other chronic diseases classified elsewhere; Z99.2 Dependence on renal dialysis; Z83.3 Family history of diabetes mellitus; Z95.1 Presence of aortocoronary bypass graft; Z95.5 Presence of coronary angioplasty implant and graft; Z82.49 Family history of ischemic heart disease and other diseases of the circulatory system; Z79.4 Long term (current) use of insulin
CPT/HCPCS: 36415; 71045; 80048; 80053; 80074; 82962; 83880; 84484; 85025; 87081; 90935; 93005; 93306; 99291; G0378; J1815; J3490